=== PATIENT | male | born 1980 | race Caucasian/White ===

== ENCOUNTER 2017-09-06 18:25 | Inpatient (IN) | payer BC ==
[2017-09-06] MEDS ORDERED: ACETAMINOPHEN 325 MG TABLET (FP) PO ONE (18:34)
[2017-09-06] MEDS ORDERED: SODIUM CHLORIDE 1,000 ML IV STA ×2 (19:08→22:27)
--- NOTE | 2017-09-06 19:10 | PDOC ---
Attending Attestation - Physicial Exam PE: 09/06/17 22:36 head ncat neck supple,no jvd,no bruits lungs cta b/l cvs tachycardia abd no rebound, no guarding extremities full range of motion, no cellulitis skin warm, dry neuro axox3,no gross focal neuro deficits no cva tenderness psych appropriate <Rosa M Marmolejo - Last Filed: 09/06/17 22:36> - Resident Resident Name: Jero Valdes - ED Attending Attestation I have performed the following: I have examined & evaluated the patient, The case was reviewed & discussed with the resident, I agree w/resident's findings & plan, Exceptions are as noted - HPI HPI: 09/06/17 18:59 37 yo male with PMH of HTN,NIDDM p/w shaking chills,dysuria,hematuria and fever. He has had symptoms for 2 weeks. He admits being noncompliant with his diabetes meds head ncat neck supple,no jvd,no bruits lungs cta b/l cvs tachycardia abd no rebound, no guarding extremities full range of motion, no cellulitis skin warm, dry neuro axox3,no gross focal neuro deficits no cva tenderness psych appropriate - - Medical Decision Making 09/06/17 23:35 37 yo male meeting SIRS criteria with fever,tachycardia,positive lactic acid, leukocytosis of 19,000 IV antibiotics,IVF and admission med/surg OBS <Colleen Tejada - Last Filed: 09/06/17 23:37>
[2017-09-06] MEDS ORDERED: CEFTRIAXONE 2 GM/100 ML BAG IVPB ONE (19:29)
[2017-09-06 19:32] LABS: BASO % 0.2 % (0-2.0); HEMATOCRIT 44.8 % (35.4-49); LYMPH % 5.4 % (8-40); MCH 25.4 pg (25.7-33.7); MCHC 33.5 g/dl (32.0-35.9); MEAN CELL VOLUME 75.8 fl (80-96); MEAN PLT VOLUME 10.4 fl (7.5-11.1); MONO % 6.4 % (3.8-10.2); PLATELET COUNT 182 K/MM3 (134-434); RBC 5.91 M/mm3 (4.00-5.60); WHITE BLOOD COUNT 19.9 K/mm3 (4.0-10.0)
--- NOTE | 2017-09-06 19:34 | PDOC ---
History of Present Illness - General Chief Complaint: Urinary Problem Stated Complaint: FATIGUE Time Seen by Provider: 09/06/17 18:48 History Source: Patient Exam Limitations: No Limitations - History of Present Illness Initial Comments: 09/06/17 20:59 37M w/ PMH of HTN,NIDDM p/w shaking chills,dysuria,hematuria and fever. He has had symptoms for 2 weeks. He admits being noncompliant with his diabetes meds. Sees his doctor every 6 months with poor follow up, never checks his sugar. 09/06/17 22:15 09/06/17 23:10 Past History - Past Medical History Allergies/Adverse Reactions: Allergies Allergy/AdvReac Type Severity Reaction Status Date / Time No Known Allergies Allergy Verified 09/06/17 18:31 Home Medications: Ambulatory Orders Glyburide 5 mg PO DAILY 09/06/17 Lisinopril [Prinivil] 20 mg PO DAILY 09/06/17 Metformin HCl 750 mg PO DAILY 09/06/17 Asthma: Yes COPD: No Diabetes: Yes HTN: Yes - Immunization History Immunization Up to Date: Yes - Suicide/Smoking/Psychosocial Hx Smoking History: Never smoked Hx Alcohol Use: No Drug/Substance Use Hx: No Review of Systems - Review of Systems Able to Perform ROS?: Yes Is the patient limited Jamaican proficient: No Constitutional: No: Symptoms Reported HEENTM: No: Symptoms Reported Respiratory: No: Symptoms reported Cardiac (ROS): No: Symptoms Reported ABD/GI: No: Symptoms Reported : Yes: See HPI Musculoskeletal: No: Symptoms Reported Integumentary: No: Symptoms Reported Neurological: No: Symptoms reported *Physical Exam - Vital Signs Last Vital Signs Temp Pulse Resp BP Pulse Ox 103.0 F H 135 H 20 145/87 98 09/06/17 18:27 09/06/17 18:27 09/06/17 18:27 09/06/17 18:27 09/06/17 18:27 - Physical Exam General Appearance: Yes: Nourished, Appropriately Dressed. No: Apparent Distress HEENT: positive: EOMI, TURNER, Normal ENT Inspection Respiratory/Chest: positive: Chest Tender, Lungs Clear, Normal Breath Sounds Cardiovascular: positive: Regular Rhythm, Regular Rate, S1, S2 Gastrointestinal/Abdominal: positive: Normal Bowel Sounds, Flat, Soft. negative : Tender Musculoskeletal: positive: Normal Inspection. negative: CVA Tenderness Extremity: positive: Normal Capillary Refill, Normal Inspection ED Treatment Course - LABORATORY CBC & Chemistry Diagram: 09/06/17 19:30 09/06/17 19:20 - ADDITIONAL ORDERS Additional order review: 09/06/17 19:20 RBC 5.91 H MCV 75.8 L MCHC 33.5 RDW 16.0 H MPV 10.4 Neutrophils % 88.0 H Lymphocytes % 5.4 L Monocytes % 6.4 Eosinophils % 0.0 Basophils % 0.2 - RADIOLOGY Radiology Studies Ordered: Category Date Time Status KIDNEY / RENAL US [US] Stat Ultrasound 09/06/17 19:15 Ordered - Medications Given in the ED: ED Medications Discontinued Medications Generic Name Dose Route Start Last Admin Trade Name Freq PRN Reason Stop Dose Admin Acetaminophen 975 mg 09/06/17 18:34 09/06/17 18:35 Tylenol - PO 09/06/17 18:35 975 mg NOW ONE Administration Medical Decision Making - Medical Decision Making 09/06/17 23:10 Basic labs, WBC 19.9, lactate 2.1, UA positive for UTI, urosepsis Patient given fluids, antibiotics. Will Admit to obs for urosepsis. 09/06/17 23:16 *DC/Admit/Observation/Transfer Diagnosis at time of Disposition: Sepsis secondary to UTI - Discharge Dispostion Admit: Yes - Referrals Referrals: Jeyson Pineda [Primary Care Provider] - - Patient Instructions - Post Discharge Activity
[2017-09-06 20:00] LABS: ALBUMIN 3.5 g/dl (3.4-5.0); ALK PHOS 87 U/L (45-117); ANION GAP 10 (8-16); BILIRUBIN,TOTAL 1.2 mg/dL (0.2-1.0); BLOOD UREA NITROGEN 12 mg/dL (7-18); CALCIUM 8.6 mg/dL (8.5-10.1); CHLORIDE 99 mmol/L (98-107); CO2 24 mmol/L (21-32); GLUCOSE,RANDOM 260 mg/dL (74-106); POTASSIUM 3.8 mmol/L (3.5-5.1); SGOT/AST 14 U/L (15-37); SGPT/ALT 35 U/L (12-78); SODIUM 133 mmol/L (136-145); TOT PROT 7.4 g/dl (6.4-8.2)
[2017-09-06 20:22] LABS: URINE APPEARANCE CLEAR; URINE BILIRUBIN NEGATIVE (NEGATIVE); URINE BLOOD 3+ (NEGATIVE); URINE COLOR YELLOW; URINE GLUCOSE (UA) 2+ (NEGATIVE); URINE KETONE TRACE (NEGATIVE); URINE NITRITE NEGATIVE (NEGATIVE); URINE PROTEIN NEGATIVE (NEGATIVE); URINE UROBILINOGEN 4.0 E.U/dl mg/dL (0.2-1.0)
[2017-09-06 20:27] LABS: URINE LEUK ESTERASE 1+ (NEGATIVE)
[2017-09-06 20:28] LABS: EPI CELLS RARE /HPF (FEW); URINE BACTERIA RARE /hpf (NONE SEEN); URINE MUCUS RARE
--- NOTE | 2017-09-06 23:20 | PN ---
Teaching Attending Note Name of Resident: Aggie Mendez ATTENDING PHYSICIAN STATEMENT I saw and evaluated the patient. I reviewed the resident's note and discussed the case with the resident. I agree with the resident's findings and plan as documented. SUBJECTIVE: 37 M with Pmhx of HTN, and NIDDM who presents with chills and rigors. Also notes dysuria and hematouria for 2 week duration. States he had not taken his oral DM meds in a month. States he had a URI around a week ago, which increased usage of his inhaler. Notes chills, states he had subjective fevers at home. No chest pain or pressure. No N,V,D. OBJECTIVE: Physical: VS: Vital Signs Period Temp Pulse Resp BP Sys/Molina Pulse Ox Last 24 Hr 100.5 F-103.0 F 110-135 20-20 141-145/78-87 97-98 GEN: NAD, Resting in bed, AA0X3 HEENT: NCAT, PERRL, Throat without erythema or exudates CARD: RRR S1, S2 RESP: CTAB ABD: BSx4, NTD to palpation EXT: - C/C/E CBCD WBC 19.9 K/mm3 (4.0-10.0) H 09/06/17 19:30 RBC 5.91 M/mm3 (4.00-5.60) H 09/06/17 19:30 Hgb 15.0 GM/dL (11.7-16.9) 09/06/17 19:30 Hct 44.8 % (35.4-49) 09/06/17 19:30 MCV 75.8 fl (80-96) L 09/06/17 19:30 MCHC 33.5 g/dl (32.0-35.9) 09/06/17 19:30 RDW 16.0 % (11.9-15.9) H 09/06/17 19:30 Plt Count 182 K/MM3 (134-434) 09/06/17 19:30 MPV 10.4 fl (7.5-11.1) 09/06/17 19:30 CMP Sodium 133 mmol/L (136-145) L 09/06/17 19:20 Potassium 3.8 mmol/L (3.5-5.1) 09/06/17 19:20 Chloride 99 mmol/L (98-107) 09/06/17 19:20 Carbon Dioxide 24 mmol/L (21-32) 09/06/17 19:20 Anion Gap 10 (8-16) 09/06/17 19:20 BUN 12 mg/dL (7-18) 09/06/17 19:20 Creatinine 1.0 mg/dL (0.7-1.3) 09/06/17 19:20 Creat Clearance w eGFR > 60 (>60) 09/06/17 19:20 Random Glucose 260 mg/dL (74-106) H 09/06/17 19:20 Calcium 8.6 mg/dL (8.5-10.1) 09/06/17 19:20 Total Bilirubin 1.2 mg/dL (0.2-1.0) H 09/06/17 19:20 AST 14 U/L (15-37) L 09/06/17 19:20 ALT 35 U/L (12-78) 09/06/17 19:20 Alkaline Phosphatase 87 U/L (45-117) 09/06/17 19:20 Total Protein 7.4 g/dl (6.4-8.2) 09/06/17 19:20 Albumin 3.5 g/dl (3.4-5.0) 09/06/17 19:20 Urine Test Results Urine Color Yellow 09/06/17 19:30 Urine Appearance Clear 09/06/17 19:30 Urine pH 6.0 (5.0-8.0) 09/06/17 19:30 Ur Specific [place] 1.012 (1.001-1.035) 09/06/17 19:30 Urine Protein Negative (NEGATIVE) 09/06/17 19:30 Urine Glucose (UA) 2+ (NEGATIVE) H 09/06/17 19:30 Urine Ketones Trace (NEGATIVE) H 09/06/17 19:30 Urine Blood 3+ (NEGATIVE) H 09/06/17 19:30 Urine Nitrite Negative (NEGATIVE) 09/06/17 19:30 Urine Bilirubin Negative (NEGATIVE) 09/06/17 19:30 Ur Leukocyte Esterase 1+ (NEGATIVE) H 09/06/17 19:30 Ur Epithelial Cells Rare /HPF (FEW) 09/06/17 19:30 Urine Bacteria Rare /hpf (NONE SEEN) 09/06/17 19:30 Urine Mucus Rare 09/06/17 19:30 Home Medications Medication Instructions Recorded Glyburide 5 mg PO DAILY 09/06/17 Lisinopril [Prinivil] 20 mg PO DAILY 09/06/17 Metformin HCl 750 mg PO DAILY 09/06/17 ASSESSMENT AND PLAN: 37 M with Pmhx. of HTN, NIDDM, who presents with fever and dysuria found to be septic. 1.) Sepsis due to Urinary Tract Infection - Fraser Cx - IVF - Repeat LA - C/W Ceftriaxone - Check. HIV If consents 2.) NIDDM - DM Diet - HgbA1C - FS - RAISS 3.) Dvt Ppx - SCDS Place in Obs
--- NOTE | 2017-09-06 23:37 | HP ---
CHIEF COMPLAINT: Chills, dysuria, hematuria x1 day PCP: Jeyson Grady HISTORY OF PRESENT ILLNESS: Pt is 37 yo M with PMHx of HTN, NIDDM, Asthma, MACKENZIE, presenting with chills, dysuria, hematuria. The pt noted chills, with significant shaking at about bedtime last night, associated with burning sensation on micturition. There was increased frequency and nocturia. Pt had one episode of hematuria- which was initially total, then terminal hematuria. Pt has nausea, but no vomiting. No abdominal pain, no flank pain, no leg swelling. No hx of similar episodes in the past. Pt has a dry cough, no sore throat or difficulty swallowing, no nasal congestion. He however noticed myalgias and a headache today, but no neck stiffness or pain. Pt had a previous episode of chills about a week ago and was diagnosed with an URTI, which resolved without medications. He reports chest tightness and SOB which he attributes to asthma, but no orthopnea, dyspnea on exertion or PND. No facial droop, palpitations or weakness of any part of the body. No recent travels, no sick contacts. Pt received flu vaccine in April. Patient was unable to fill his medications for a month and only resumed use last Thursday. ER course was notable for: (1) Tmax-103, MS-135, Lactic acid 2.1, WBC-19.9% (2) Na-133, Glu -260, UA-WBC-42, LE-1+, RBC-9, Bld -3+ (3) PO tylenol, Iv NS-2L, 2g ceftriaxone (4) Renal USS, CXR Recent Travel: None PAST MEDICAL HISTORY: HTN, NIDDM, Asthma, MACKENZIE (unable to tolerate the CPAP machine) PAST SURGICAL HISTORY: None Social History: Lives with significant other, and kids. Delivers plumbing supplies Smoking: Quit 20 years ago after smoking for about 3years Alcohol:Social Drugs: None Family History: Sister has kidney stones Allergies No Known Allergies Allergy (Verified 09/06/17 18:31) HOME MEDICATIONS: Home Medications Medication Instructions Recorded Glyburide 5 mg PO DAILY 09/06/17 Lisinopril [Prinivil] 20 mg PO DAILY 09/06/17 Metformin HCl 750 mg PO DAILY 09/06/17 REVIEW OF SYSTEMS CONSTITUTIONAL: chills+, malaise+, Absent: fever, diaphoresis, generalized weakness, loss of appetite, weight change HEENT: Absent: rhinorrhea, nasal congestion, throat pain, throat swelling, difficulty swallowing, mouth swelling, ear pain, eye pain, visual changes CARDIOVASCULAR: Absent: chest pain, syncope, palpitations, irregular heart rate, lightheadedness , peripheral edema RESPIRATORY: cough+, Absent: shortness of breath, dyspnea with exertion, orthopnea, wheezing , stridor, hemoptysis GASTROINTESTINAL: Absent: abdominal pain, abdominal distension, nausea, vomiting, diarrhea, constipation, melena, hematochezia GENITOURINARY: dysuria+, frequency+, hematuria+, Absent: urgency, hesitancy, flank pain, genital pain MUSCULOSKELETAL: myalgia+ Absent: arthralgia, joint swelling, back pain, neck pain SKIN: Absent: rash, itching, pallor HEMATOLOGIC/IMMUNOLOGIC: Absent: easy bleeding, easy bruising, lymphadenopathy, frequent infections ENDOCRINE: Absent: unexplained weight gain, unexplained weight loss, heat intolerance, cold intolerance NEUROLOGIC: Absent: headache, focal weakness or paresthesias, dizziness, unsteady gait, seizure, mental status changes, bladder or bowel incontinence PSYCHIATRIC: Absent: anxiety, depression, suicidal or homicidal ideation, hallucinations. PHYSICAL EXAMINATION Vital Signs - 24 hr 09/06/17 09/06/17 09/06/17 18:27 20:17 20:48 Temperature 103.0 F H 100.5 F H Pulse Rate 135 H Pulse Rate [ 110 H Radial] Respiratory 20 20 Rate Blood Pressure 145/87 Blood Pressure 141/78 [Left Arm] O2 Sat by Pulse 98 98 97 Oximetry (%) GENERAL: Awake, alert, and fully oriented, in no acute respiratory distress, speaks in complete sentences. HEAD: Normal with no signs of trauma. EYES: Pupils equal, round and reactive to light, extraocular movements intact, sclera anicteric, conjunctiva clear. EARS, NOSE, THROAT: oropharynx clear without exudates. Moist mucous membranes. NECK: Normal range of motion, supple without lymphadenopathy, JVD, or masses. LUNGS: Breath sounds equal, clear to auscultation bilaterally. No wheezes, and no crackles. No accessory muscle use. HEART: Tachycardic, S1 and S2 without murmur, rub or gallop. ABDOMEN: Obese, Soft, nontender, normoactive bowel sounds, no guarding, no rebound, no masses. No CVA /flank tenderness MUSCULOSKELETAL: Normal range of motion at all joints. No bony deformities or tenderness. No CVA tenderness. UPPER EXTREMITIES: 2+ pulses, warm, well-perfused. No cyanosis. No clubbing. No peripheral edema. LOWER EXTREMITIES: 2+ pulses, warm, well-perfused. No calf tenderness. No peripheral edema. Normal tone, strength 5/5 bilaterally NEUROLOGICAL: Cranial nerves II-XII intact. Normal speech. Gait not observed. Normal tone, strength 5/5 bilaterally PSYCHIATRIC: Cooperative. Good eye contact. Appropriate mood and affect. Laboratory Results - last 24 hr 09/06/17 09/06/17 09/06/17 19:20 19:30 19:30 WBC 19.9 H RBC 5.91 H Hgb 15.0 Hct 44.8 MCV 75.8 L MCH 25.4 L MCHC 33.5 RDW 16.0 H Plt Count 182 MPV 10.4 Neutrophils % 88.0 H Lymphocytes % 5.4 L Monocytes % 6.4 Eosinophils % 0.0 Basophils % 0.2 Sodium 133 L Potassium 3.8 Chloride 99 Carbon Dioxide 24 Anion Gap 10 BUN 12 Creatinine 1.0 Creat Clearance w eGFR > 60 Random Glucose 260 H Lactic Acid Calcium 8.6 Total Bilirubin 1.2 H AST 14 L ALT 35 Alkaline Phosphatase 87 Total Protein 7.4 Albumin 3.5 Urine Color Yellow Urine Appearance Clear Urine pH 6.0 Ur Specific [place] 1.012 Urine Protein Negative Urine Glucose (UA) 2+ H Urine Ketones Trace H Urine Blood 3+ H Urine Nitrite Negative Urine Bilirubin Negative Urine Urobilinogen 4.0 e.u/dl Ur Leukocyte Esterase 1+ H Urine WBC (Auto) 42 Urine RBC (Auto) 9 Ur Epithelial Cells Rare Urine Bacteria Rare Urine Mucus Rare HIV 1&2 Antibody Screen HIV P24 Antigen 09/06/17 09/06/17 19:30 21:25 WBC RBC Hgb Hct MCV MCH MCHC RDW Plt Count MPV Neutrophils % Lymphocytes % Monocytes % Eosinophils % Basophils % Sodium Potassium Chloride Carbon Dioxide Anion Gap BUN Creatinine Creat Clearance w eGFR Random Glucose Lactic Acid 2.1 H Calcium Total Bilirubin AST ALT Alkaline Phosphatase Total Protein Albumin Urine Color Urine Appearance Urine pH Ur Specific [place] Urine Protein Urine Glucose (UA) Urine Ketones Urine Blood Urine Nitrite Urine Bilirubin Urine Urobilinogen Ur Leukocyte Esterase Urine WBC (Auto) Urine RBC (Auto) Ur Epithelial Cells Urine Bacteria Urine Mucus HIV 1&2 Antibody Screen Negative HIV P24 Antigen Negative ASSESSMENT/PLAN: Pt is 37 yo M with PMHx of HTN, NIDDM, Asthma, MACKENZIE, presenting with chills, dysuria, hematuria. Sepsis 2/2 UTI: SIRS-3/4 ( Tmax-103, MS-135, WBC-19.9%) Lactic acid 2.1, trend -1.9 Positive UA Continue iv Ceftriaxone 2g daily (one dose given in ED) Cont iv Normal saline @ 125/hr (2L given in ED) Tylenol 650 PRN Q6H Bld Cx Urine Cx CXR Renal US Urine straining If symptoms do not improve or worsening abd pain will consider CT abdomen w/ o contrast for renal stones Tabs flomax 0.4mg stat iv zofran 4mg Q4h PRN SOB: Associated chest tightness Could be 2/2 to asthma, no wheezes/rhonchi Albuterol nebulizer 0.083% Q4H PRN NIDDM: Hyperglycemic ISS ACHS BGM ACHS iv normal saline Diabetic/sodium restricted diet Hold metformin and glipizide Hgb A1c Hyponatremia: Likely hypertonic hyponatremia with hyperglycemia Corrected sodium-136 Continue DM mx HTN: Resume in am- Lisinopril 20mg HS Monitor BP Hematuria: Likely due to the UTI Could be due to a renal stone Tabs flomax 0.4mg stat FEN: IV NS @125/hr Monitor lytes and replete as needed Diabetic/sodium restricted diet PPx: SCDs Dispo: Obs- Med surg Visit type - Emergency Visit Emergency Visit: Yes ED Registration Date: 09/06/17 Care time: The patient presented to the Emergency Department on the above date and was hospitalized for further evaluation of their emergent condition. - New Patient This patient is new to me today: Yes Date on this admission: 09/07/17 - Critical Care Critical Care patient: No Hospitalist Screening - Colonoscopy Questionnaire Colonoscopy Questionnaire: Colonoscopy Questionnaire - Patient: 50 - 75 years old and never had a screening colonoscopy: No History of colon or rectal polyps, or CA: Unknown History of IBD, Crohn's disease or UC: Unknown History of abdominal radiation therapy as a child: Unknown - Relative: 1 with colon or rectal CA, or polyps at age 60 or younger: Unknown Colon or rectal CA diagnosed at age 45 or younger: Unknown Multiple relatives with colon or rectal CA: Unknown - Outcome: Screening Result: Negative Screen
[2017-09-06] MEDS ORDERED: SODIUM CHLORIDE 1,000 ML IV SCH (23:45)
[2017-09-07 00:36] LABS: ARTERIAL BLD GAS O2 SATURATION 80.9 % (90-98.9); ARTERIAL BLOOD GAS BASE EXCESS 0.1 meq/l (-2-2); ARTERIAL BLOOD GAS PCO2 32.9 mmHg (35-45); ARTERIAL BLOOD GAS pH 7.46 (7.35-7.45)
[2017-09-07 00:38] LABS: ALLENS TEST POSITIVE
[2017-09-07 00:40] LABS: ARTERIAL BLOOD GAS PO2 38.2 mmHg (80-100)
[2017-09-07] MEDS ORDERED: TAMSULOSIN HCL 0.4 MG CAP.ER.24H (FP) PO ONE (00:41)
[2017-09-07] MEDS ORDERED: ONDANSETRON 4 MG/2 ML VIAL IVPUSH PRN ×2 (00:43→16:45)
[2017-09-07] MEDS ORDERED: ACETAMINOPHEN INJECTION 100 ML IVPB ONE (00:52)
[2017-09-07] MEDS: SODIUM CHLORIDE 1,000 ML IV SCH ×3 (01:07→22:21)
[2017-09-07] MEDS ORDERED: ACETAMINOPHEN 1000 MG/100 ML VIAL (NON FORMULARY) IVPB ONE (01:13)
[2017-09-07] MEDS ORDERED: TAMSULOSIN HCL 0.4 MG CAP.ER.24H (FP) ONE (01:22)
[2017-09-07 02:44] VITALS: BMI 37.7
[2017-09-07] MEDS ORDERED: HEPARIN NA (PORCINE) 5,000 UNITS/ML 1ML VIAL SQ SCH (06:00)
[2017-09-07] MEDS: INSULIN SLIDING SCALE (NOVOLOG) 1 VIAL SQ SCH ×5 (06:41→21:23)
[2017-09-07 07:21] LABS: BASO % 0.1 % (0-2.0); EOS % 0.1 % (0-4.5); HEMATOCRIT 42.9 % (35.4-49); HEMOGLOBIN 14.1 GM/dL (11.7-16.9); LYMPH % 10.4 % (8-40); MCH 25.4 pg (25.7-33.7); MCHC 32.9 g/dl (32.0-35.9); MEAN PLT VOLUME 10.8 fl (7.5-11.1); MONO % 6.9 % (3.8-10.2); NEUT % 82.5 % (42.8-82.8); PLATELET COUNT 183 K/MM3 (134-434); RBC 5.58 M/mm3 (4.00-5.60); RDW 16.1 % (11.9-15.9); WHITE BLOOD COUNT 20.3 K/mm3 (4.0-10.0)
[2017-09-07 07:53] LABS: CHLORIDE 103 mmol/L (98-107); POTASSIUM 4.1 mmol/L (3.5-5.1); SODIUM 138 mmol/L (136-145)
[2017-09-07 08:04] LABS: ALK PHOS 85 U/L (45-117); ANION GAP 12 (8-16); BILIRUBIN,TOTAL 1.3 mg/dL (0.2-1.0); BLOOD UREA NITROGEN 11 mg/dL (7-18); CALCIUM 8.6 mg/dL (8.5-10.1); CO2 23 mmol/L (21-32); CREATININE 0.9 mg/dL (0.7-1.3); GLUCOSE,RANDOM 226 mg/dL (74-106); MAGNESIUM 1.8 mg/dL (1.8-2.4); PHOSPHOROUS 2.6 mg/dL (2.5-4.9); SGOT/AST 12 U/L (15-37); SGPT/ALT 32 U/L (12-78)
[2017-09-07] MEDS: LISINOPRIL 20 MG TABLET (FP) PO SCH (09:19)
[2017-09-07 09:36] LABS: BILIRUBIN,DIRECT 0.3 mg/dL (0.0-0.2)
[2017-09-07] MEDS ORDERED: cefTRIAXone 2 GM/100 ML BAG (PRE-DOCKED) IVPB SCH (10:00)
[2017-09-07] MEDS ORDERED: CEFTRIAXONE 1 G/50 ML PREMIX 50 ML IVPB SCH (10:00)
[2017-09-07] MEDS ORDERED: CEFTRIAXONE IN IS-OSM DEXTROSE 2 GM/50 ML BAG IVPB SCH (10:00)
--- NOTE | 2017-09-07 10:42 | EKG ---
Test Reason : Blood Pressure : / mmHG Vent. Rate : 111 BPM Atrial Rate : 111 BPM P-R Int : 160 ms QRS Dur : 102 ms QT Int : 322 ms P-R-T Axes : 069 078 051 degrees QTc Int : 437 ms SINUS TACHYCARDIA OTHERWISE NORMAL ECG NO PREVIOUS ECGS AVAILABLE Confirmed by LISSY FONSECA MD ([id number]) on 09/07/2017 10:42:12 AM Referred By: Confirmed By:LISSY FONSECA MD
[2017-09-07] MEDS ORDERED: INSULIN (NOVOLOG) ASPART 100 UNITS/ML 10ML VIAL ONE ×2 (11:32→16:44)
[2017-09-07] MEDS: AZITHROMYCIN 250 MG TABLET PO SCH (11:35)
[2017-09-07 13:20] LABS: URINE APPEARANCE CLEAR; URINE BILIRUBIN NEGATIVE (NEGATIVE); URINE BLOOD NEGATIVE (NEGATIVE); URINE COLOR YELLOW; URINE GLUCOSE (UA) 3+ (NEGATIVE); URINE KETONE TRACE (NEGATIVE); URINE LEUK ESTERASE NEGATIVE (NEGATIVE); URINE NITRITE NEGATIVE (NEGATIVE); URINE PROTEIN NEGATIVE (NEGATIVE); URINE UROBILINOGEN 4.0 E.U/dl mg/dL (0.2-1.0)
--- NOTE | 2017-09-07 15:48 | PN ---
Teaching Attending Note Name of Resident: Robinson Galo ATTENDING PHYSICIAN STATEMENT I saw and evaluated the patient. I reviewed the resident's note and discussed the case with the resident. I agree with the resident's findings and plan as documented. SUBJECTIVE: Patient is 37 yo M with PMHx of HTN, NIDDM, Asthma, MACKEN[place], presented to ED. with chills, dysuria, hematuria. Also c/o having cough and his sinuses are acting up. Also c/o having burning sensation on micturition. Patient is c/o having a dry cough, no sore throat or difficulty swallowing, no nasal congestion. OBJECTIVE: Vital Signs Temperature 100.0 F H 09/07/17 14:44 Pulse Rate 106 H 09/07/17 14:44 Respiratory Rate 20 09/07/17 14:44 Blood Pressure 139/80 09/07/17 14:44 O2 Sat by Pulse Oximetry (%) 97 09/07/17 09:42 CBCD WBC 20.3 K/mm3 (4.0-10.0) H 09/07/17 07:00 RBC 5.58 M/mm3 (4.00-5.60) 09/07/17 07:00 Hgb 14.1 GM/dL (11.7-16.9) 09/07/17 07:00 Hct 42.9 % (35.4-49) 09/07/17 07:00 MCV 77.0 fl (80-96) L 09/07/17 07:00 MCHC 32.9 g/dl (32.0-35.9) 09/07/17 07:00 RDW 16.1 % (11.9-15.9) H 09/07/17 07:00 Plt Count 183 K/MM3 (134-434) 09/07/17 07:00 MPV 10.8 fl (7.5-11.1) 09/07/17 07:00 CMP Sodium 138 mmol/L (136-145) 09/07/17 07:00 Potassium 4.1 mmol/L (3.5-5.1) 09/07/17 07:00 Chloride 103 mmol/L (98-107) 09/07/17 07:00 Carbon Dioxide 23 mmol/L (21-32) 09/07/17 07:00 Anion Gap 12 (8-16) 09/07/17 07:00 BUN 11 mg/dL (7-18) 09/07/17 07:00 Creatinine 0.9 mg/dL (0.7-1.3) 09/07/17 07:00 Creat Clearance w eGFR > 60 (>60) 09/07/17 07:00 Random Glucose 226 mg/dL (74-106) H 09/07/17 07:00 Calcium 8.6 mg/dL (8.5-10.1) 09/07/17 07:00 Total Bilirubin 1.3 mg/dL (0.2-1.0) H 09/07/17 07:00 AST 12 U/L (15-37) L 09/07/17 07:00 ALT 32 U/L (12-78) 09/07/17 07:00 Alkaline Phosphatase 85 U/L (45-117) 09/07/17 07:00 Total Protein 7.0 g/dl (6.4-8.2) 09/07/17 07:00 Albumin 3.0 g/dl (3.4-5.0) L 09/07/17 07:00 CARDIAC ENZYMES Creatine Kinase 143 IU/L (39-308) 09/07/17 07:00 Current Medications Generic Name Dose Route Start Last Admin Trade Name Freq PRN Reason Stop Dose Admin Acetaminophen 650 mg 09/07/17 01:29 Tylenol - PO Q6H PRN FEVER Albuterol Sulfate 1 amp 09/07/17 00:42 Ventolin 0.083% Nebulizer Soln - NEB Q4H PRN SHORT OF BREATH/WHEEZING Azithromycin 500 mg 09/07/17 11:15 09/07/17 11:35 Zithromax - PO 500 mg DAILY SIDNEY Administration CEFTRIAXONE IN IS-OSM DEXTROSE 2 gm in 50 mls @ 100 mls/hr 09/07/17 10:00 11/20 09:19 Ceftriaxone 2 Gm-D5w Bag IVPB 09/13/17 10:29 100 mls/hr DAILY SIDNEY Administration Sodium Chloride 1,000 mls @ 125 mls/hr 09/07/17 00:46 09/07/17 12:38 Normal Saline - IV 125 mls/hr ASDIR SIDNEY Administration Insulin Aspart 1 vial 09/07/17 07:00 09/07/17 11:35 Novolog Vial Sliding Scale - SQ 4 units ACHS SIDNEY Administration Protocol Insulin Detemir 10 units 09/07/17 22:00 Levemir Vial SQ HS SIDNEY Lisinopril 20 mg 09/07/17 10:00 09/07/17 09:19 Prinivil PO 20 mg DAILY SIDNEY Administration Ondansetron HCl 4 mg 09/07/17 00:43 Zofran Injection IVPUSH Q4H PRN NAUSEA AND/OR VOMITING Home Medications Medication Instructions Recorded Glyburide 5 mg PO DAILY 09/06/17 Lisinopril [Prinivil] 20 mg PO DAILY 09/06/17 Metformin HCl 750 mg PO DAILY 09/06/17 PE: GENERAL: Awake, alert, and fully oriented, in no acute respiratory distress, speaks in complete sentences. HEAD: Normal with no signs of trauma. EYES: Pupils equal, round and reactive to light, extraocular movements intact, sclera anicteric, conjunctiva clear. EARS, NOSE, THROAT: oropharynx clear without exudates. Moist mucous membranes. NECK: Normal range of motion, supple without lymphadenopathy, JVD, or masses. LUNGS: Breath sounds equal, clear to auscultation bilaterally. No wheezes, and no crackles. No accessory muscle use. HEART: Tachycardic, S1 and S2 without murmur, rub or gallop. ABDOMEN: Obese, Soft, nontender, normoactive bowel sounds, no guarding, no rebound, no masses. No CVA /flank tenderness MUSCULOSKELETAL: Normal range of motion at all joints. No bony deformities or tenderness. No CVA tenderness. EXTREMITIES: 2+ pulses, warm, well-perfused. No calf tenderness. No peripheral edema. Normal tone, strength 5/5 bilaterally NEUROLOGICAL: Cranial nerves II-XII intact. Normal speech. Gait not observed. Normal tone, strength 5/5 bilaterally PSYCHIATRIC: Cooperative. Good eye contact. Appropriate mood and affect. ASSESSMENT AND PLAN: Pt is 37 yo M with PMHx of HTN, NIDDM, Asthma, MACKENZIE, presenting with chills, dysuria, hematuria. # Acute sepsis with ( Tmax-103, NE-135, WBC-20%) on IV Rocephin and Zithromax for possible sinus infection since patient is prone to sinusitis and feels congested. ID consulted. # NIDDM:SS with coverage also added Levemir 10 units qhs #s/p Hyponatremia: improved #HTN: Lisinopril 20mg HS #Hematuria: due to the kidney stone , will repeat UA. DVT Px: SCDs
--- NOTE | 2017-09-07 16:08 | PN ---
Physical Exam: SUBJECTIVE: Patient seen and examined at bed side . complain of fever and chills over night . presented with dysuria and hematuria . denies any abdominal pain , N/V/D/C. has recent URI and complains of nasal congestion. OBJECTIVE: Vital Signs Period Temp Pulse Resp BP Sys/Molina Pulse Ox Last 24 Hr 99.9 F-103.0 F 101-135 16-20 134-145/76-87 95-100 GENERAL: AAOx3 in NAD HEAD: NC/AT EYES: EOMI, Conjunctiva clear, sclera anicteric ENT: moist mucous membrane NECK: Supple, no JVD LUNGS: CTA B/L, no crackles no wheezing no accessory muscle use. HEART: RRR, NSR, normal s1, s2, murmur no M/R/G ABDOMEN: Soft, ND, NT, +BS 4 Q, no CVA Tenderness LOWER EXTREMITIES: no edema, +2DP pulse, NEUROLOGICAL: No focal deficit. Normal speech. gait not observed. PSYCHIATRIC: Cooperative. Good eye contact. Appropriate mood and affect. SKIN: Warm, dry, Laboratory Results - last 24 hr 09/06/17 09/06/17 09/06/17 19:20 19:30 19:30 WBC 19.9 H RBC 5.91 H Hgb 15.0 Hct 44.8 MCV 75.8 L MCH 25.4 L MCHC 33.5 RDW 16.0 H Plt Count 182 MPV 10.4 Neutrophils % 88.0 H Lymphocytes % 5.4 L Monocytes % 6.4 Eosinophils % 0.0 Basophils % 0.2 ESR Puncture Site ABG pH ABG pCO2 at Pt Temp ABG pO2 at Pt Temp ABG HCO3 ABG O2 Sat (Measured) ABG O2 Content ABG Base Excess Sudhakar Test Oxygen Flow Rate Vent Mode Sodium 133 L Potassium 3.8 Chloride 99 Carbon Dioxide 24 Anion Gap 10 BUN 12 Creatinine 1.0 Creat Clearance w eGFR > 60 POC Glucometer Random Glucose 260 H Hemoglobin A1c % Lactic Acid Calcium 8.6 Phosphorus Magnesium Total Bilirubin 1.2 H Direct Bilirubin AST 14 L ALT 35 Alkaline Phosphatase 87 Creatine Kinase C-Reactive Protein Total Protein 7.4 Albumin 3.5 Vitamin B12 Urine Color Yellow Urine Appearance Clear Urine pH 6.0 Ur Specific [place] 1.012 Urine Protein Negative Urine Glucose (UA) 2+ H Urine Ketones Trace H Urine Blood 3+ H Urine Nitrite Negative Urine Bilirubin Negative Urine Urobilinogen 4.0 e.u/dl Ur Leukocyte Esterase 1+ H Urine WBC (Auto) 42 Urine RBC (Auto) 9 Ur Epithelial Cells Rare Urine Bacteria Rare Urine Mucus Rare Ur Random Sodium Ur Random Potassium Ur Random Chloride Urine Creatinine HIV 1&2 Antibody Screen HIV P24 Antigen 09/06/17 09/06/17 09/07/17 19:30 21:25 00:30 WBC RBC Hgb Hct MCV MCH MCHC RDW Plt Count MPV Neutrophils % Lymphocytes % Monocytes % Eosinophils % Basophils % ESR Puncture Site Left radial ABG pH 7.46 H ABG pCO2 at Pt Temp 32.9 L ABG pO2 at Pt Temp 38.2 L* ABG HCO3 22.8 ABG O2 Sat (Measured) 80.9 L ABG O2 Content 16.5 ABG Base Excess 0.1 Sudhakar Test Positive Oxygen Flow Rate No Result Required. Vent Mode Room air Sodium Potassium Chloride Carbon Dioxide Anion Gap BUN Creatinine Creat Clearance w eGFR POC Glucometer Random Glucose Hemoglobin A1c % Lactic Acid 2.1 H Calcium Phosphorus Magnesium Total Bilirubin Direct Bilirubin AST ALT Alkaline Phosphatase Creatine Kinase C-Reactive Protein Total Protein Albumin Vitamin B12 Urine Color Urine Appearance Urine pH Ur Specific [place] Urine Protein Urine Glucose (UA) Urine Ketones Urine Blood Urine Nitrite Urine Bilirubin Urine Urobilinogen Ur Leukocyte Esterase Urine WBC (Auto) Urine RBC (Auto) Ur Epithelial Cells Urine Bacteria Urine Mucus Ur Random Sodium Ur Random Potassium Ur Random Chloride Urine Creatinine HIV 1&2 Antibody Screen Negative HIV P24 Antigen Negative 09/07/17 09/07/17 09/07/17 02:00 06:39 07:00 WBC 20.3 H RBC 5.58 Hgb 14.1 Hct 42.9 MCV 77.0 L MCH 25.4 L MCHC 32.9 RDW 16.1 H Plt Count 183 MPV 10.8 Neutrophils % 82.5 Lymphocytes % 10.4 D Monocytes % 6.9 Eosinophils % 0.1 D Basophils % 0.1 ESR Puncture Site ABG pH ABG pCO2 at Pt Temp ABG pO2 at Pt Temp ABG HCO3 ABG O2 Sat (Measured) ABG O2 Content ABG Base Excess Sudhakar Test Oxygen Flow Rate Vent Mode Sodium Potassium Chloride Carbon Dioxide Anion Gap BUN Creatinine Creat Clearance w eGFR POC Glucometer 234 Random Glucose Hemoglobin A1c % Lactic Acid 1.9 Calcium Phosphorus Magnesium Total Bilirubin Direct Bilirubin AST ALT Alkaline Phosphatase Creatine Kinase C-Reactive Protein Total Protein Albumin Vitamin B12 Urine Color Urine Appearance Urine pH Ur Specific [place] Urine Protein Urine Glucose (UA) Urine Ketones Urine Blood Urine Nitrite Urine Bilirubin Urine Urobilinogen Ur Leukocyte Esterase Urine WBC (Auto) Urine RBC (Auto) Ur Epithelial Cells Urine Bacteria Urine Mucus Ur Random Sodium Ur Random Potassium Ur Random Chloride Urine Creatinine HIV 1&2 Antibody Screen HIV P24 Antigen 09/07/17 09/07/17 09/07/17 07:00 07:00 07:00 WBC RBC Hgb Hct MCV MCH MCHC RDW Plt Count MPV Neutrophils % Lymphocytes % Monocytes % Eosinophils % Basophils % ESR Puncture Site ABG pH ABG pCO2 at Pt Temp ABG pO2 at Pt Temp ABG HCO3 ABG O2 Sat (Measured) ABG O2 Content ABG Base Excess Sudhakar Test Oxygen Flow Rate Vent Mode Sodium 138 Potassium 4.1 Chloride 103 Carbon Dioxide 23 Anion Gap 12 BUN 11 Creatinine 0.9 Creat Clearance w eGFR > 60 POC Glucometer Random Glucose 226 H Hemoglobin A1c % 8.3 H Lactic Acid Calcium 8.6 Phosphorus 2.6 Magnesium 1.8 Total Bilirubin 1.3 H Direct Bilirubin 0.3 H Cancelled AST 12 L ALT 32 Alkaline Phosphatase 85 Creatine Kinase 143 C-Reactive Protein 16.0 H Total Protein 7.0 Albumin 3.0 L Vitamin B12 376 Urine Color Urine Appearance Urine pH Ur Specific [place] Urine Protein Urine Glucose (UA) Urine Ketones Urine Blood Urine Nitrite Urine Bilirubin Urine Urobilinogen Ur Leukocyte Esterase Urine WBC (Auto) Urine RBC (Auto) Ur Epithelial Cells Urine Bacteria Urine Mucus Ur Random Sodium Ur Random Potassium Ur Random Chloride Urine Creatinine HIV 1&2 Antibody Screen HIV P24 Antigen 09/07/17 09/07/17 09/07/17 11:07 12:00 12:00 WBC RBC Hgb Hct MCV MCH MCHC RDW Plt Count MPV Neutrophils % Lymphocytes % Monocytes % Eosinophils % Basophils % ESR Puncture Site ABG pH ABG pCO2 at Pt Temp ABG pO2 at Pt Temp ABG HCO3 ABG O2 Sat (Measured) ABG O2 Content ABG Base Excess Sudhakar Test Oxygen Flow Rate Vent Mode Sodium Potassium Chloride Carbon Dioxide Anion Gap BUN Creatinine Creat Clearance w eGFR POC Glucometer 241 Random Glucose Hemoglobin A1c % Lactic Acid Calcium Phosphorus Magnesium Total Bilirubin Direct Bilirubin AST ALT Alkaline Phosphatase Creatine Kinase C-Reactive Protein Total Protein Albumin Vitamin B12 Urine Color Urine Appearance Urine pH Ur Specific [place] Urine Protein Urine Glucose (UA) Urine Ketones Urine Blood Urine Nitrite Urine Bilirubin Urine Urobilinogen Ur Leukocyte Esterase Urine WBC (Auto) Urine RBC (Auto) Ur Epithelial Cells Urine Bacteria Urine Mucus Ur Random Sodium Cancelled 139 Ur Random Potassium Cancelled 18.0 Ur Random Chloride Cancelled 119 Urine Creatinine 109.0 HIV 1&2 Antibody Screen HIV P24 Antigen 09/07/17 09/07/17 12:00 12:40 WBC RBC Hgb Hct MCV MCH MCHC RDW Plt Count MPV Neutrophils % Lymphocytes % Monocytes % Eosinophils % Basophils % ESR 29 H Puncture Site ABG pH ABG pCO2 at Pt Temp ABG pO2 at Pt Temp ABG HCO3 ABG O2 Sat (Measured) ABG O2 Content ABG Base Excess Sudhakar Test Oxygen Flow Rate Vent Mode Sodium Potassium Chloride Carbon Dioxide Anion Gap BUN Creatinine Creat Clearance w eGFR POC Glucometer Random Glucose Hemoglobin A1c % Lactic Acid Calcium Phosphorus Magnesium Total Bilirubin Direct Bilirubin AST ALT Alkaline Phosphatase Creatine Kinase C-Reactive Protein Total Protein Albumin Vitamin B12 Urine Color Yellow Urine Appearance Clear Urine pH 7.0 Ur Specific [place] 1.018 Urine Protein Negative Urine Glucose (UA) 3+ H Urine Ketones Trace H Urine Blood Negative Urine Nitrite Negative Urine Bilirubin Negative Urine Urobilinogen 4.0 e.u/dl Ur Leukocyte Esterase Negative Urine WBC (Auto) Urine RBC (Auto) Ur Epithelial Cells Urine Bacteria Urine Mucus Ur Random Sodium Ur Random Potassium Ur Random Chloride Urine Creatinine HIV 1&2 Antibody Screen HIV P24 Antigen Active Medications Generic Name Dose Route Start Last Admin Trade Name Freq PRN Reason Stop Dose Admin Acetaminophen 650 mg 09/07/17 01:29 Tylenol - PO Q6H PRN FEVER Albuterol Sulfate 1 amp 09/07/17 00:42 Ventolin 0.083% Nebulizer Soln - NEB Q4H PRN SHORT OF BREATH/WHEEZING Azithromycin 500 mg 09/07/17 11:15 09/07/17 11:35 Zithromax - PO 500 mg DAILY SIDNEY Administration CEFTRIAXONE IN IS-OSM DEXTROSE 2 gm in 50 mls @ 100 mls/hr 09/07/17 10:00 11/20 09:19 Ceftriaxone 2 Gm-D5w Bag IVPB 09/13/17 10:29 100 mls/hr DAILY SIDNEY Administration Sodium Chloride 1,000 mls @ 125 mls/hr 09/07/17 00:46 09/07/17 12:38 Normal Saline - IV 125 mls/hr ASDIR SIDNEY Administration Insulin Aspart 1 vial 09/07/17 07:00 09/07/17 11:35 Novolog Vial Sliding Scale - SQ 4 units ACHS SIDNEY Administration Protocol Insulin Detemir 10 units 09/07/17 22:00 Levemir Vial SQ HS SIDNEY Lisinopril 20 mg 09/07/17 10:00 09/07/17 09:19 Prinivil PO 20 mg DAILY ISDNEY Administration Ondansetron HCl 4 mg 09/07/17 00:43 Zofran Injection IVPUSH Q4H PRN NAUSEA AND/OR VOMITING CBC, BMP 09/07/17 07:00 09/07/17 07:00 ASSESSMENT/PLAN: Pt is 37 yo M with PMHx of HTN, NIDDM, Asthma, MACKENZIE, recent URI presented with fever, chills, dysuria, hematuria. Sepsis 2/2 UTI vs another sources * fever 103, HR 135, wbc 20, LA 2.1 ...1.9 * US positive for infection * Continue Rocephin 2 gm IVBP daily * ID consulted agree with the plan * F/U Blood cx , urine cx * CXR negative for acute pathology * Renal US with kidney stone * consider CT scan abdomen if no improvement with abx * continue IV fluids and urine straining. * one dose of Flomx 0.4 mg po over night Hematuria likely 2/2 nephrolithiasis * pt reports dysuria and hematuria day of admission associated with fever, chills, nausea * Started on abx Rocephin 2 gm IVbP daily * Zofran for nausea * EKG to R/O QTC prolongation * IV Fluids 125 CC/hr NS * pain control Tylenol 650 Q6hr for pain. H/O recent URI with residual nasal congestion . H/O asthma * Albuterol nebs as needed * nasal swap * throat cx * zithromax 3 days * claritin as needed HTN , controlled * resume home meds Lisinopril 20 mg po daily DM * Hold oral agents * GBM ACHS * ISS * insulin Levemir 10 units Q AM * HGBA1c 8.6 * Diabetic diet * educated about losing weight and life style modification Hyponatremia , resolved likely 2/2 volume depletion * NS 133 ....138 * Monitor BMP * Continue IV fluids Morbid obesity, chronic * BMI 37 * educated about life style modification follow up with upon DC. FEN * F: NS 125 CC/hr * E: Mild hyponatremia , monitor BMP * N: low Na , diabetic diet Proph * DVTS: SCDS both legs * GI: no need for now Dispo * admit to med-surg inpatient services Visit type - Emergency Visit Emergency Visit: Yes ED Registration Date: 09/07/17 Care time: The patient presented to the Emergency Department on the above date and was hospitalized for further evaluation of their emergent condition. - New Patient This patient is new to me today: Yes Date on this admission: 09/07/17 - Critical Care Critical Care patient: No
[2017-09-07] MEDS: ACETAMINOPHEN 325 MG TABLET (FP) PO PRN (21:24)
[2017-09-07] MEDS ORDERED: INSULIN DETEMIR 100 UNITS/ML MDV SQ SCH (22:00)
[2017-09-08] MEDS: SODIUM CHLORIDE 1,000 ML IV SCH ×2 (06:06→15:58)
[2017-09-08] MEDS: ACETAMINOPHEN 325 MG TABLET (FP) PO PRN ×2 (06:07→12:44)
[2017-09-08] MEDS: INSULIN SLIDING SCALE (NOVOLOG) 1 VIAL SQ SCH ×4 (06:07→22:32)
[2017-09-08] MEDS ORDERED: PSEUDOEPHEDRINE HCL 30 MG TABLET PO SCH (08:00)
[2017-09-08 08:46] LABS: BASO % 0.1 % (0-2.0); EOS % 0.3 % (0-4.5); HEMATOCRIT 41.2 % (35.4-49); HEMOGLOBIN 13.9 GM/dL (11.7-16.9); LYMPH % 6.4 % (8-40); MCHC 33.7 g/dl (32.0-35.9); MEAN CELL VOLUME 77.1 fl (80-96); MEAN PLT VOLUME 10.3 fl (7.5-11.1); MONO % 6.2 % (3.8-10.2); PLATELET COUNT 168 K/MM3 (134-434); RBC 5.34 M/mm3 (4.00-5.60); RDW 15.6 % (11.9-15.9); WHITE BLOOD COUNT 10.9 K/mm3 (4.0-10.0)
[2017-09-08 09:11] LABS: ALBUMIN 3.1 g/dl (3.4-5.0); ANION GAP 11 (8-16); BLOOD UREA NITROGEN 10 mg/dL (7-18); CALCIUM 8.7 mg/dL (8.5-10.1); CHLORIDE 102 mmol/L (98-107); CO2 21 mmol/L (21-32); GLUCOSE,RANDOM 214 mg/dL (74-106); SGOT/AST 31 U/L (15-37); SGPT/ALT 46 U/L (12-78); SODIUM 134 mmol/L (136-145)
[2017-09-08 09:14] LABS: ALK PHOS 94 U/L (45-117); CREATININE 0.7 mg/dL (0.7-1.3); TOT PROT 7.5 g/dl (6.4-8.2)
[2017-09-08] MEDS ORDERED: PSEUDOEPHEDRINE HCL 30 MG TABLET PO PRN (09:49)
--- NOTE | 2017-09-08 09:58 | PN ---
Physical Exam: SUBJECTIVE: Patient seen and examined at bedside. continued to have fever 101.1 this AM, still complain of nasal congestion, but denies any urinary symptoms or hematuria. denies any chest pain , sob,N/V/D/C. OBJECTIVE: Vital Signs Period Temp Pulse Resp BP Sys/Molina Pulse Ox Last 24 Hr 100.0 F-101.1 F 95-113 16-20 128-152/80-94 97 GENERAL: AAOx3 in NAD , febrile HEAD: NC/AT EYES: EOMI, Conjunctiva clear, sclera anicteric ENT: moist mucous membrane NECK: Supple, no JVD LUNGS: CTA B/L, no crackles no wheezing no accessory muscle use. HEART: RRR, NSR, normal s1, s2, murmur no M/R/G ABDOMEN: Soft, ND, NT, +BS 4 Q, no CVA Tenderness LOWER EXTREMITIES: no edema, +2DP pulse, NEUROLOGICAL: No focal deficit. Normal speech. gait not observed. PSYCHIATRIC: Cooperative. Good eye contact. Appropriate mood and affect. SKIN: Warm, dry, Laboratory Results - last 24 hr 09/07/17 09/07/17 09/07/17 07:00 11:07 12:00 WBC RBC Hgb Hct MCV MCH MCHC RDW Plt Count MPV Neutrophils % Lymphocytes % Monocytes % Eosinophils % Basophils % ESR Sodium 138 Potassium 4.1 Chloride 103 Carbon Dioxide 23 Anion Gap 12 BUN 11 Creatinine 0.9 Creat Clearance w eGFR > 60 POC Glucometer 241 Random Glucose 226 H Calcium 8.6 Phosphorus 2.6 Magnesium 1.8 Total Bilirubin 1.3 H Direct Bilirubin 0.3 H AST 12 L ALT 32 Alkaline Phosphatase 85 Creatine Kinase 143 C-Reactive Protein 16.0 H Total Protein 7.0 Albumin 3.0 L Vitamin B12 376 Urine Color Urine Appearance Urine pH Ur Specific [place] Urine Protein Urine Glucose (UA) Urine Ketones Urine Blood Urine Nitrite Urine Bilirubin Urine Urobilinogen Ur Leukocyte Esterase Ur Random Sodium Cancelled Ur Random Potassium Cancelled Ur Random Chloride Cancelled Urine Creatinine 09/07/17 09/07/17 09/07/17 12:00 12:00 12:40 WBC RBC Hgb Hct MCV MCH MCHC RDW Plt Count MPV Neutrophils % Lymphocytes % Monocytes % Eosinophils % Basophils % ESR 29 H Sodium Potassium Chloride Carbon Dioxide Anion Gap BUN Creatinine Creat Clearance w eGFR POC Glucometer Random Glucose Calcium Phosphorus Magnesium Total Bilirubin Direct Bilirubin AST ALT Alkaline Phosphatase Creatine Kinase C-Reactive Protein Total Protein Albumin Vitamin B12 Urine Color Yellow Urine Appearance Clear Urine pH 7.0 Ur Specific [place] 1.018 Urine Protein Negative Urine Glucose (UA) 3+ H Urine Ketones Trace H Urine Blood Negative Urine Nitrite Negative Urine Bilirubin Negative Urine Urobilinogen 4.0 e.u/dl Ur Leukocyte Esterase Negative Ur Random Sodium 139 Ur Random Potassium 18.0 Ur Random Chloride 119 Urine Creatinine 109.0 09/07/17 09/07/17 09/08/17 16:43 21:22 06:05 WBC RBC Hgb Hct MCV MCH MCHC RDW Plt Count MPV Neutrophils % Lymphocytes % Monocytes % Eosinophils % Basophils % ESR Sodium Potassium Chloride Carbon Dioxide Anion Gap BUN Creatinine Creat Clearance w eGFR POC Glucometer 262 212 224 Random Glucose Calcium Phosphorus Magnesium Total Bilirubin Direct Bilirubin AST ALT Alkaline Phosphatase Creatine Kinase C-Reactive Protein Total Protein Albumin Vitamin B12 Urine Color Urine Appearance Urine pH Ur Specific [place] Urine Protein Urine Glucose (UA) Urine Ketones Urine Blood Urine Nitrite Urine Bilirubin Urine Urobilinogen Ur Leukocyte Esterase Ur Random Sodium Ur Random Potassium Ur Random Chloride Urine Creatinine 09/08/17 09/08/17 08:05 08:05 WBC 10.9 H D RBC 5.34 Hgb 13.9 Hct 41.2 MCV 77.1 L MCH 26.0 MCHC 33.7 RDW 15.6 Plt Count 168 MPV 10.3 Neutrophils % 87.0 H Lymphocytes % 6.4 L D Monocytes % 6.2 Eosinophils % 0.3 D Basophils % 0.1 ESR Sodium 134 L Potassium 4.0 Chloride 102 Carbon Dioxide 21 Anion Gap 11 BUN 10 Creatinine 0.7 D Creat Clearance w eGFR > 60 POC Glucometer Random Glucose 214 H Calcium 8.7 Phosphorus Magnesium Total Bilirubin 1.0 D Direct Bilirubin AST 31 D ALT 46 D Alkaline Phosphatase 94 Creatine Kinase C-Reactive Protein Total Protein 7.5 Albumin 3.1 L Vitamin B12 Urine Color Urine Appearance Urine pH Ur Specific [place] Urine Protein Urine Glucose (UA) Urine Ketones Urine Blood Urine Nitrite Urine Bilirubin Urine Urobilinogen Ur Leukocyte Esterase Ur Random Sodium Ur Random Potassium Ur Random Chloride Urine Creatinine Active Medications Generic Name Dose Route Start Last Admin Trade Name Freq PRN Reason Stop Dose Admin Acetaminophen 650 mg 09/07/17 01:29 09/08/17 06:07 Tylenol - PO 650 mg Q6H PRN Administration FEVER Albuterol Sulfate 1 amp 09/07/17 00:42 Ventolin 0.083% Nebulizer Soln - NEB Q4H PRN SHORT OF BREATH/WHEEZING Azithromycin 500 mg 09/07/17 11:15 09/07/17 11:35 Zithromax - PO 500 mg DAILY SIDNEY Administration Sodium Chloride 1,000 mls @ 125 mls/hr 09/07/17 00:46 09/08/17 06:06 Normal Saline - IV 125 mls/hr ASDIR SIDNEY Administration Cefepime HCl 2 gm/ Dextrose 100 mls @ 200 mls/hr 09/08/17 10:00 IVPB Q8H-IV SIDNEY Protocol Insulin Aspart 1 vial 09/07/17 07:00 09/08/17 06:07 Novolog Vial Sliding Scale - SQ 4 units ACHS SIDNEY Administration Protocol Insulin Detemir 15 units 09/08/17 08:03 Levemir Vial SQ HS SIDNEY Lisinopril 20 mg 09/07/17 10:00 09/07/17 09:19 Prinivil PO 20 mg DAILY SIDNEY Administration Loratadine 10 mg 09/08/17 10:00 Claritin - PO DAILY SIDNEY Ondansetron HCl 4 mg 09/07/17 16:45 Zofran Injection IVPUSH Q6H PRN NAUSEA AND/OR VOMITING Oseltamivir Phosphate 75 mg 09/08/17 10:00 Tamiflu - PO 09/13/17 09:59 BID SIDNEY Pseudoephedrine HCl 30 mg 09/08/17 09:49 Sudafed - PO Q4H PRN NASAL CONGESTION CBC, BMP 09/08/17 08:05 09/08/17 08:05 Microbiology 09/07/17 12:00 Throat Throat Culture - Final NO BETA HEMOLYTIC STREPTOCOCCI ISOLATED 09/07/17 12:00 Throat Throat Culture - Final NO BETA HEMOLYTIC STREPTOCOCCI ISOLATED 09/07/17 12:00 Throat Group A Strep Rapid Antigen - Final 09/06/17 19:30 Urine - Urine Clean Catch Urine Culture - Preliminary Lactose Fermenting Neg Bacilli 09/07/17 02:00 Blood - Peripheral Venous Blood Culture - Preliminary NO GROWTH OBTAINED AFTER 24 HOURS, INCUBATION TO CONTINUE FOR 4 DAYS. 09/07/17 02:00 Blood - Peripheral Venous Blood Culture - Preliminary NO GROWTH OBTAINED AFTER 24 HOURS, INCUBATION TO CONTINUE FOR 4 DAYS. ASSESSMENT/PLAN: Pt is 37 yo M with PMHx of HTN, NIDDM, Asthma, MACKENZIE, recent URI presented with fever, chills, dysuria, hematuria. Sepsis 2/2 UTI vs URI vs another sources * continue to have fever 101.1 , wbc trending down to 10.9. CRP 16, ESR 29 * UA positive for infection * Continue Rocephin 2 gm IVBP daily, switch to cefepim per ID recommendations * Blood cx negative , urine cx with lactose fermenting negative bacilli * CXR negative for acute pathology * Renal US with kidney stone * F/U CT scan /abdomen/pelvice , chest CTA * HIV negative , C trachomatis and N gonorrhea pending * continue IV fluids and urine straining. * F/U cortisol AM and TSH, MICAELA Hematuria likely 2/2 nephrolithiasis * pt reports dysuria and hematuria day of admission associated with fever, chills, nausea * switch abx to cefepim * Zofran for nausea * contiue IV Fluids 125 CC/hr NS * pain control Tylenol 650 Q6hr for pain and fever H/O recent URI with residual nasal congestion . H/O asthma * Albuterol nebs as needed * nasal swap negative * throat cx negative * zithromax 2/3 day, added tamiflue 75 mg BID day 1 * claritin as needed HTN , poor controlled * resume home meds Lisinopril 20 mg po daily * consider adding norvasc 5 mg po daily if continue to be elevated DM not controlled * Hold oral agents * GBM ACHS * ISS * increased insulin Levemir to 15 units HS * HGBA1c 8.6 * Diabetic diet * educated about losing weight and life style modification Hyponatremia , * NS 133 ....138...134 * Monitor BMP * Continue IV fluids Morbid obesity, chronic * BMI 37 * educated about life style modification follow up with upon DC. FEN * F: NS 125 CC/hr * E: Mild hyponatremia , monitor BMP * N: low Na , diabetic diet Proph * DVTS: SCDS both legs , early ambulations * GI: no need for now Dispo * admit to med-surg inpatient services Visit type - Emergency Visit Emergency Visit: Yes ED Registration Date: 09/07/17 Care time: The patient presented to the Emergency Department on the above date and was hospitalized for further evaluation of their emergent condition. - New Patient This patient is new to me today: No - Critical Care Critical Care patient: No
[2017-09-08] MEDS ORDERED: PT OWN MED DRAWER 7, Y5N ONE (10:18)
[2017-09-08] MEDS: AZITHROMYCIN 250 MG TABLET PO SCH (10:19)
[2017-09-08] MEDS: LISINOPRIL 20 MG TABLET (FP) PO SCH (10:20)
[2017-09-08] MEDS: LORATADINE 10 MG TABLET PO SCH (10:20)
[2017-09-08] MEDS: OSELTAMIVIR PHOSPHATE 75 MG CAPSULE PO SCH ×3 (10:30→22:32)
[2017-09-08] MEDS: ALBUTEROL SO4 0.083% IH SOL 2.5 MG/3 ML VIAL.NEB. NEB PRN ×2 (10:45→21:41)
--- NOTE | 2017-09-08 11:27 | PN ---
Teaching Attending Note Name of Resident: Robinson Galo ATTENDING PHYSICIAN STATEMENT I saw and evaluated the patient. I reviewed the resident's note and discussed the case with the resident. I agree with the resident's findings and plan as documented. SUBJECTIVE: Patient feels better, but c/o having fever on and off. Denies using any illicit drugs. No nausea or vomiting, no headache. feels better taking oral antihistamine. Denies any dysuria or hematuria. OBJECTIVE: Vital Signs Temperature 101.1 F H 09/08/17 06:00 Pulse Rate 113 H 09/08/17 06:00 Respiratory Rate 20 09/08/17 06:00 Blood Pressure 152/94 09/08/17 06:00 O2 Sat by Pulse Oximetry (%) 97 09/07/17 21:00 CBCD WBC 10.9 K/mm3 (4.0-10.0) H D 09/08/17 08:05 RBC 5.34 M/mm3 (4.00-5.60) 09/08/17 08:05 Hgb 13.9 GM/dL (11.7-16.9) 09/08/17 08:05 Hct 41.2 % (35.4-49) 09/08/17 08:05 MCV 77.1 fl (80-96) L 09/08/17 08:05 MCHC 33.7 g/dl (32.0-35.9) 09/08/17 08:05 RDW 15.6 % (11.9-15.9) 09/08/17 08:05 Plt Count 168 K/MM3 (134-434) 09/08/17 08:05 MPV 10.3 fl (7.5-11.1) 09/08/17 08:05 CMP Sodium 134 mmol/L (136-145) L 09/08/17 08:05 Potassium 4.0 mmol/L (3.5-5.1) 09/08/17 08:05 Chloride 102 mmol/L (98-107) 09/08/17 08:05 Carbon Dioxide 21 mmol/L (21-32) 09/08/17 08:05 Anion Gap 11 (8-16) 09/08/17 08:05 BUN 10 mg/dL (7-18) 09/08/17 08:05 Creatinine 0.7 mg/dL (0.7-1.3) D 09/08/17 08:05 Creat Clearance w eGFR > 60 (>60) 09/08/17 08:05 Random Glucose 214 mg/dL (74-106) H 09/08/17 08:05 Calcium 8.7 mg/dL (8.5-10.1) 09/08/17 08:05 Total Bilirubin 1.0 mg/dL (0.2-1.0) D 09/08/17 08:05 AST 31 U/L (15-37) D 09/08/17 08:05 ALT 46 U/L (12-78) D 09/08/17 08:05 Alkaline Phosphatase 94 U/L (45-117) 09/08/17 08:05 Total Protein 7.5 g/dl (6.4-8.2) 09/08/17 08:05 Albumin 3.1 g/dl (3.4-5.0) L 09/08/17 08:05 CARDIAC ENZYMES Creatine Kinase 143 IU/L (39-308) 09/07/17 07:00 Current Medications Generic Name Dose Route Start Last Admin Trade Name Freq PRN Reason Stop Dose Admin Acetaminophen 650 mg 09/07/17 01:29 09/08/17 06:07 Tylenol - PO 650 mg Q6H PRN Administration FEVER Albuterol Sulfate 1 amp 09/07/17 00:42 09/08/17 10:45 Ventolin 0.083% Nebulizer Soln - NEB 1 amp Q4H PRN Administration SHORT OF BREATH/WHEEZING Azithromycin 500 mg 09/07/17 11:15 09/08/17 10:19 Zithromax - PO 500 mg DAILY [facility] Administration Sodium Chloride 1,000 mls @ 125 mls/hr 09/07/17 00:46 09/08/17 06:06 Normal Saline - IV 125 mls/hr ASDIR [facility] Administration Cefepime HCl 2 gm/ Dextrose 100 mls @ 200 mls/hr 09/08/17 10:00 IVPB Q8H-IV [facility] Protocol Insulin Aspart 1 vial 09/07/17 07:00 09/08/17 06:07 Novolog Vial Sliding Scale - SQ 4 units ACHS [facility] Administration Protocol Insulin Detemir 15 units 09/08/17 08:03 Levemir Vial SQ HS [facility] Lisinopril 20 mg 09/07/17 10:00 09/08/17 10:20 Prinivil PO 20 mg DAILY [facility] Administration Loratadine 10 mg 09/08/17 10:00 09/08/17 10:20 Claritin - PO 10 mg DAILY [facility] Administration Ondansetron HCl 4 mg 09/07/17 16:45 Zofran Injection IVPUSH Q6H PRN NAUSEA AND/OR VOMITING Oseltamivir Phosphate 75 mg 09/08/17 10:00 Tamiflu - PO 09/13/17 09:59 BID [facility] Pseudoephedrine HCl 30 mg 09/08/17 09:49 Sudafed - PO Q4H PRN NASAL CONGESTION Home Medications Medication Instructions Recorded Glyburide 5 mg PO DAILY 09/06/17 Lisinopril [Prinivil] 20 mg PO DAILY 09/06/17 Metformin HCl 750 mg PO DAILY 09/06/17 Urine Test Results Urine Color Yellow 09/07/17 12:00 Urine Appearance Clear 09/07/17 12:00 Urine pH 7.0 (5.0-8.0) 09/07/17 12:00 Ur Specific [place] 1.018 (1.001-1.035) 09/07/17 12:00 Urine Protein Negative (NEGATIVE) 09/07/17 12:00 Urine Glucose (UA) 3+ (NEGATIVE) H 09/07/17 12:00 Urine Ketones Trace (NEGATIVE) H 09/07/17 12:00 Urine Blood Negative (NEGATIVE) 09/07/17 12:00 Urine Nitrite Negative (NEGATIVE) 09/07/17 12:00 Urine Bilirubin Negative (NEGATIVE) 09/07/17 12:00 Ur Leukocyte Esterase Negative (NEGATIVE) 09/07/17 12:00 Ur Epithelial Cells Rare /HPF (FEW) 09/06/17 19:30 Urine Bacteria Rare /hpf (NONE SEEN) 09/06/17 19:30 Urine Mucus Rare 09/06/17 19:30 Microbiology 09/07/17 12:00 Throat Throat Culture - Final NO BETA HEMOLYTIC STREPTOCOCCI ISOLATED 09/07/17 12:00 Throat Throat Culture - Final NO BETA HEMOLYTIC STREPTOCOCCI ISOLATED 09/07/17 12:00 Throat Group A Strep Rapid Antigen - Final 09/06/17 19:30 Urine - Urine Clean Catch Urine Culture - Preliminary Lactose Fermenting Neg Bacilli 09/07/17 02:00 Blood - Peripheral Venous Blood Culture - Preliminary NO GROWTH OBTAINED AFTER 24 HOURS, INCUBATION TO CONTINUE FOR 4 DAYS. 09/07/17 02:00 Blood - Peripheral Venous Blood Culture - Preliminary NO GROWTH OBTAINED AFTER 24 HOURS, INCUBATION TO CONTINUE FOR 4 DAYS. PE: Patient is tachycardic, S1S2 positive, no murmur appreciated. rest of PE per resident's note ASSESSMENT AND PLAN: Pt is 37 yo M with PMHx of HTN, NIDDM, Asthma, MACKENZIE, presenting with chills, dysuria, hematuria. # Acute sepsis with unknown source , added Cefepime by ID , Zithromax continue, added Tamiflu 75mg po bid for possible Flu, patient continues to spike, will order CT abdomen/pelvis and CTA to r/o PE, perinephric abcess. Follow the result. # NIDDM: SS with coverage also added Levemir 10 units qhs #Acute Hyponatremia: improving. #HTN: Lisinopril 20mg HS #Hematuria: due to the kidney stone , will repeat UA. DVT Px: SCDs Follow Echo follow CTA/Ct of abdomen and pelvis follow bld cx, urine cx
[2017-09-08] MEDS: CEFEPIME 2 GM in DEXTROSE 5%-WATER - 100 ML IVPB SCH ×2 (11:29→19:32)
--- NOTE | 2017-09-08 14:20 | EKG ---
Test Reason : Blood Pressure : / mmHG Vent. Rate : 095 BPM Atrial Rate : 095 BPM P-R Int : 154 ms QRS Dur : 106 ms QT Int : 332 ms P-R-T Axes : 065 066 047 degrees QTc Int : 417 ms NORMAL SINUS RHYTHM NORMAL ECG WHEN COMPARED WITH ECG OF 07-SEP-2017 00:37, NO SIGNIFICANT CHANGE WAS FOUND Confirmed by MD Raymond Edward ([id number]) on 09/08/2017 2:20:04 PM Referred By: Confirmed By:Wallace Raymond MD
[2017-09-08] MEDS ORDERED: ACETAMINOPHEN 325 MG TABLET (FP) PO PRN (15:51)
--- NOTE | 2017-09-08 16:45 | PN ---
Progress Note, Physician History of Present Illness: Remains febrile Reports headache with fever Dysuria/ hematuria resolved No suprapubic or flank tenderness Urine c/s GNR BC pending - Current Medication List Current Medications: Active Medications Acetaminophen (Tylenol -) 1,000 mg PO Q6H PRN PRN Reason: FEVER Albuterol Sulfate (Ventolin 0.083% Nebulizer Soln -) 1 amp NEB Q4H PRN PRN Reason: SHORT OF BREATH/WHEEZING Last Admin: 09/08/17 10:45 Dose: 1 amp Azithromycin (Zithromax -) 500 mg PO DAILY [facility] Last Admin: 09/08/17 10:19 Dose: 500 mg Sodium Chloride (Normal Saline -) 1,000 mls @ 125 mls/hr IV ASDIR [facility] Last Admin: 09/08/17 15:58 Dose: 125 mls/hr Cefepime HCl 2 gm/ Dextrose 100 mls @ 200 mls/hr IVPB Q8H-IV [facility] PRN Reason: Protocol Last Admin: 09/08/17 11:29 Dose: 200 mls/hr Insulin Aspart (Novolog Vial Sliding Scale -) 1 vial SQ ACHS [facility] PRN Reason: Protocol Last Admin: 09/08/17 12:02 Dose: 4 units Insulin Detemir (Levemir Vial) 15 units SQ HS [facility] Lisinopril (Prinivil) 20 mg PO DAILY [facility] Last Admin: 09/08/17 10:20 Dose: 20 mg Loratadine (Claritin -) 10 mg PO DAILY [facility] Last Admin: 09/08/17 10:20 Dose: 10 mg Oseltamivir Phosphate (Tamiflu -) 75 mg PO BID [facility] Stop: 09/13/17 09:59 Last Admin: 09/08/17 12:05 Dose: 75 mg Sodium Chloride ([place] Nasal [place] -) 2 spray NS BID PRN PRN Reason: NASAL CONGESTION - Objective Vital Signs: Vital Signs Temperature 102.6 F H 09/08/17 15:25 Pulse Rate 109 H 09/08/17 14:41 Respiratory Rate 18 09/08/17 14:41 Blood Pressure 147/84 09/08/17 14:41 O2 Sat by Pulse Oximetry (%) 98 09/08/17 10:30 Constitutional: Yes: No Distress Cardiovascular: Yes: Regular Rate and Rhythm, S1, S2 Respiratory: Yes: CTA Bilaterally Gastrointestinal: Yes: Normal Bowel Sounds, Soft, Abdomen, Obese. No: Tenderness Genitourinary: No: CVA Tenderness - Left, CVA Tenderness - Right Labs: CBC, BMP 09/08/17 08:05 09/08/17 08:05 Assessment/Plan UTI/ Sepsis secondary to UTI Continued fever Switched to cefepime pending c/s Obtain CT abdomen/pelvis, Chest
[2017-09-08] MEDS: SODIUM CHLORIDE NASAL SPRAY 44 ML BOTTLE NS PRN (22:31)
[2017-09-08] MEDS: INSULIN DETEMIR 100 UNITS/ML MDV SQ SCH (22:32)
[2017-09-09] MEDS: CEFEPIME 2 GM in DEXTROSE 5%-WATER - 100 ML IVPB SCH ×3 (02:09→12:49)
[2017-09-09] MEDS: SODIUM CHLORIDE 1,000 ML IV SCH ×2 (02:09→14:18)
[2017-09-09] MEDS: INSULIN SLIDING SCALE (NOVOLOG) 1 VIAL SQ SCH ×4 (06:05→21:30)
[2017-09-09] MEDS: ACETAMINOPHEN 500 MG TABLET (FP) PO PRN ×2 (06:05→15:13)
[2017-09-09] MEDS ORDERED: INSULIN DETEMIR 100 UNITS/ML MDV SQ ONE (07:01)
[2017-09-09 08:21] LABS: BASO % 0.4 % (0-2.0); EOS % 0.2 % (0-4.5); HEMATOCRIT 40.2 % (35.4-49); HEMOGLOBIN 13.6 GM/dL (11.7-16.9); LYMPH % 17.2 % (8-40); MCH 25.6 pg (25.7-33.7); MCHC 33.9 g/dl (32.0-35.9); MEAN CELL VOLUME 75.7 fl (80-96); MEAN PLT VOLUME 10.3 fl (7.5-11.1); MONO % 9.4 % (3.8-10.2); NEUT % 72.8 % (42.8-82.8); PLATELET COUNT 159 K/MM3 (134-434); RBC 5.31 M/mm3 (4.00-5.60); RDW 15.6 % (11.9-15.9); WHITE BLOOD COUNT 4.6 K/mm3 (4.0-10.0)
[2017-09-09 08:33] LABS: ALBUMIN 2.8 g/dl (3.4-5.0); ANION GAP 8 (8-16); BLOOD UREA NITROGEN 10 mg/dL (7-18); CALCIUM 7.8 mg/dL (8.5-10.1); CHLORIDE 103 mmol/L (98-107); CO2 23 mmol/L (21-32); GLUCOSE,RANDOM 189 mg/dL (74-106); POTASSIUM 3.8 mmol/L (3.5-5.1); SGOT/AST 47 U/L (15-37); SGPT/ALT 65 U/L (12-78); SODIUM 134 mmol/L (136-145)
[2017-09-09 08:44] LABS: ALK PHOS 94 U/L (45-117); BILIRUBIN,TOTAL 0.6 mg/dL (0.2-1.0); CREATININE 0.8 mg/dL (0.7-1.3); TOT PROT 6.6 g/dl (6.4-8.2)
[2017-09-09] MEDS: LISINOPRIL 20 MG TABLET (FP) PO SCH (11:25)
[2017-09-09] MEDS: OSELTAMIVIR PHOSPHATE 75 MG CAPSULE PO SCH ×2 (11:26→21:30)
[2017-09-09] MEDS: LORATADINE 10 MG TABLET PO SCH (11:26)
[2017-09-09] MEDS: AZITHROMYCIN 250 MG TABLET PO SCH (11:26)
--- NOTE | 2017-09-09 11:57 | PN ---
Progress Note, Physician History of Present Illness: Feeling better No c/o dysuria, hematuria no suprapubic or flank pain Remains febrile No headache Urine c/s E. coli (s) cefazolin BC (-) - Current Medication List Current Medications: Active Medications Acetaminophen (Tylenol -) 1,000 mg PO Q6H PRN PRN Reason: FEVER Last Admin: 09/09/17 06:05 Dose: 1,000 mg Albuterol Sulfate (Ventolin 0.083% Nebulizer Soln -) 1 amp NEB Q4H PRN PRN Reason: SHORT OF BREATH/WHEEZING Last Admin: 09/08/17 21:41 Dose: 1 amp Azithromycin (Zithromax -) 500 mg PO DAILY [facility] Last Admin: 09/09/17 11:26 Dose: 500 mg Sodium Chloride (Normal Saline -) 1,000 mls @ 125 mls/hr IV ASDIR [facility] Last Admin: 09/09/17 02:09 Dose: 125 mls/hr Insulin Aspart (Novolog Vial Sliding Scale -) 1 vial SQ ACHS [facility] PRN Reason: Protocol Last Admin: 09/09/17 06:05 Dose: 4 units Insulin Detemir (Levemir Vial) 15 units SQ HS [facility] Last Admin: 09/08/17 22:32 Dose: 15 units Lisinopril (Prinivil) 20 mg PO DAILY [facility] Last Admin: 09/09/17 11:25 Dose: 20 mg Loratadine (Claritin -) 10 mg PO DAILY [facility] Last Admin: 09/09/17 11:26 Dose: 10 mg Oseltamivir Phosphate (Tamiflu -) 75 mg PO BID [facility] Stop: 09/13/17 09:59 Last Admin: 09/09/17 11:26 Dose: 75 mg Sodium Chloride ([place] Nasal [place] -) 2 spray NS BID PRN PRN Reason: NASAL CONGESTION Last Admin: 09/08/17 22:31 Dose: 2 spray - Objective Vital Signs: Vital Signs Temperature 103.0 F H 09/09/17 06:00 Pulse Rate 108 H 09/09/17 06:00 Respiratory Rate 20 09/09/17 06:00 Blood Pressure 140/85 09/09/17 06:00 O2 Sat by Pulse Oximetry (%) 99 09/08/17 21:00 Constitutional: Yes: No Distress, Obese Eyes: Yes: Conjunctiva Clear Cardiovascular: Yes: Regular Rate and Rhythm, S1, S2 Respiratory: Yes: CTA Bilaterally Gastrointestinal: Yes: Normal Bowel Sounds, Soft. No: Tenderness Genitourinary: No: CVA Tenderness - Left, CVA Tenderness - Right Edema: No Labs: CBC, BMP 09/09/17 06:30 09/09/17 07:30 Assessment/Plan UTI/ Sepsis secondary to UTI Continued fever Switched to cefazolin CT scans noted
[2017-09-09] MEDS: CEFAZOLIN 2 GM/D5W 2 GM/50 ML ML IVPB SCH ×2 (14:16→17:41)
--- NOTE | 2017-09-09 16:52 | PN ---
Physical Exam: SUBJECTIVE: Patient seen and examined at bedside. continued to have fever 103 this AM, still complain of nasal congestion, but denies any urinary symptoms or hematuria. denies any chest pain , sob,N/V/D/C. OBJECTIVE: Vital Signs Period Temp Pulse Resp BP Sys/[place] Pulse Ox Last 24 Hr 99.2 F-103.0 F 80-108 18-20 122-152/66-91 97-99 GENERAL: AAOx3 in NAD , febrile HEAD: NC/AT EYES: EOMI, Conjunctiva clear, sclera anicteric ENT: moist mucous membrane NECK: Supple, no JVD LUNGS: CTA B/L, no crackles no wheezing no accessory muscle use. HEART: RRR, NSR, normal s1, s2, murmur no M/R/G ABDOMEN: Soft, ND, NT, +BS 4 Q, no CVA Tenderness LOWER EXTREMITIES: no edema, +2DP pulse, NEUROLOGICAL: No focal deficit. Normal speech. gait not observed. PSYCHIATRIC: Cooperative. Good eye contact. Appropriate mood and affect. SKIN: Warm, dry, Laboratory Results - last 24 hr 09/08/17 09/08/17 09/09/17 17:14 22:29 06:04 WBC RBC Hgb Hct MCV MCH MCHC RDW Plt Count MPV Neutrophils % Lymphocytes % Monocytes % Eosinophils % Basophils % Sodium Potassium Chloride Carbon Dioxide Anion Gap BUN Creatinine Creat Clearance w eGFR POC Glucometer 213 217 232 Random Glucose Calcium Total Bilirubin AST ALT Alkaline Phosphatase Total Protein Albumin TSH Free T4 09/09/17 09/09/17 09/09/17 06:30 07:30 07:30 WBC 4.6 D RBC 5.31 Hgb 13.6 Hct 40.2 MCV 75.7 L MCH 25.6 L MCHC 33.9 RDW 15.6 Plt Count 159 MPV 10.3 Neutrophils % 72.8 Lymphocytes % 17.2 D Monocytes % 9.4 Eosinophils % 0.2 Basophils % 0.4 D Sodium 134 L Potassium 3.8 Chloride 103 Carbon Dioxide 23 Anion Gap 8 BUN 10 Creatinine 0.8 Creat Clearance w eGFR > 60 POC Glucometer Random Glucose 189 H Calcium 7.8 L Total Bilirubin 0.6 D AST 47 H D ALT 65 D Alkaline Phosphatase 94 Total Protein 6.6 Albumin 2.8 L TSH 0.30 L Free T4 0.94 Cancelled 09/09/17 12:09 WBC RBC Hgb Hct MCV MCH MCHC RDW Plt Count MPV Neutrophils % Lymphocytes % Monocytes % Eosinophils % Basophils % Sodium Potassium Chloride Carbon Dioxide Anion Gap BUN Creatinine Creat Clearance w eGFR POC Glucometer 226 Random Glucose Calcium Total Bilirubin AST ALT Alkaline Phosphatase Total Protein Albumin TSH Free T4 Active Medications Generic Name Dose Route Start Last Admin Trade Name Freq PRN Reason Stop Dose Admin Acetaminophen 1,000 mg 09/08/17 19:08 09/09/17 15:13 Tylenol - PO 1,000 mg Q6H PRN Administration FEVER Albuterol Sulfate 1 amp 09/07/17 00:42 09/08/17 21:41 Ventolin 0.083% Nebulizer Soln - NEB 1 amp Q4H PRN Administration SHORT OF BREATH/WHEEZING Azithromycin 500 mg 09/07/17 11:15 09/09/17 11:26 Zithromax - PO 500 mg DAILY [facility] Administration Cefazolin Sodium/Dextrose 2 gm in 50 mls @ 100 mls/hr 09/09/17 12:45 14:16 Ancef 2 Gm Premixed Ivpb - IVPB 100 mls/hr Q8H-IV [facility] Administration Sodium Chloride 1,000 mls @ 100 mls/hr 09/09/17 12:52 09/09/17 14:18 Normal Saline - IV 100 mls/hr ASDIR [facility] Administration Insulin Aspart 1 vial 09/07/17 07:00 09/09/17 12:15 Novolog Vial Sliding Scale - SQ 4 units ACHS [facility] Administration Protocol Insulin Detemir 15 units 09/08/17 08:03 09/08/17 22:32 Levemir Vial SQ 15 units HS [facility] Administration Lisinopril 20 mg 09/07/17 10:00 09/09/17 11:25 Prinivil PO 20 mg DAILY [facility] Administration Loratadine 10 mg 09/08/17 10:00 09/09/17 11:26 Claritin - PO 10 mg DAILY [facility] Administration Oseltamivir Phosphate 75 mg 09/08/17 10:00 09/09/17 11:26 Tamiflu - PO 09/13/17 09:59 75 mg BID [facility] Administration Sodium Chloride 2 spray 09/08/17 11:28 09/08/17 22:31 [place] Balsam Nasal Balsam - NS 2 spray BID PRN Administration NASAL CONGESTION CBC, BMP 09/09/17 06:30 09/09/17 07:30 ASSESSMENT/PLAN: t is 37 yo M with PMHx of HTN, NIDDM, Asthma, MACKENZIE, recent URI presented with fever, chills, dysuria, hematuria. Sepsis 2/2 UTI vs URI vs pyelonephrirtis vs prostatis vs unknown sources * continue to have fever 103.0 , wbc trending down to 4.6. CRP 16, ESR 29 * UA positive for infection * Continue Rocephin 2 gm IVBP daily, switch to cefazoli per ID recommendations * Blood cx negative , urine cx with lactose fermenting negative bacilli * CXR negative for acute pathology * Renal US with kidney stone possible pyelonephritis * CT scan /abdomen/pelvic , chest CTA negative but has a bulg disk that can follow as out pt * HIV negative , C. Trachomatis and N gonorrhea pending * continue IV fluids and urine straining. * F/U cortisol AM and TSH low f.u Ft4, MICAELA * F/U echocardiogram result * US douplex negative for DVT * SURINDER was done with normal sphincter tone and no prostate tenderness * repeat blood cx Hematuria likely 2/2 nephrolithiasis * pt reports dysuria and hematuria day of admission associated with fever, chills, nausea * switch abx to cefepim * Zofran for nausea * continue IV Fluids 100 CC/hr NS * pain control Tylenol 650 Q6hr for pain and fever H/O recent URI with residual nasal congestion . H/O asthma * Albuterol nebs as needed * nasal swap negative * throat cx negative * zithromax 2/3 day, added tamiflue 75 mg BID day 1 * claritin as needed HTN , poor controlled * resume home meds Lisinopril 20 mg po daily * consider adding norvasc 5 mg po daily if continue to be elevated DM not controlled * Hold oral agents * GBM ACHS * ISS * increased insulin Levemir to 15 units HS * HGBA1c 8.6 * Diabetic diet * educated about losing weight and life style modification Bulged disk L4-L5 on CT scan .with no symptoms will f/u as out pt. Hyponatremia , * NS 133 ....138...134 * Monitor BMP * Continue IV fluids Morbid obesity, chronic * BMI 37 * educated about life style modification follow up with upon DC. FEN * F: NS 100 CC/hr * E: Mild hyponatremia , monitor BMP * N: low Na , diabetic diet Proph * DVTS: SCDS both legs , early ambulations * GI: no need for now Dispo * admit to med-surg inpatient services Visit type - Emergency Visit Emergency Visit: Yes ED Registration Date: 09/07/17 Care time: The patient presented to the Emergency Department on the above date and was hospitalized for further evaluation of their emergent condition. - New Patient This patient is new to me today: No - Critical Care Critical Care patient: No
--- NOTE | 2017-09-09 18:18 | PN ---
Teaching Attending Note Name of Resident: Robinson Galo ATTENDING PHYSICIAN STATEMENT I saw and evaluated the patient. I reviewed the resident's note and discussed the case with the resident. I agree with the resident's findings and plan as documented. SUBJECTIVE: fever no chills . has no abd pain . no SOB or cough . no rectal pain or dysuria . OBJECTIVE: NAD , no neck rigidity CV: RRR Lungs: CTAB ext: no edema Abd: soft, NT, ND , NL BS, no CVA tenderness rectal: nl hair distribution. prostate was not felt , but no tenderness on anterior wall of rectum . MS: no TTP over spine in C/t/l areas ASSESSMENT AND PLAN: 37 y/o man with h/o HTN, DM , MACKENZIE , and asthma who presented with fever and dysuria and was found to have sepsis form complicated UTI/Pyelo 1- Sepsis 2/2 complicated UTI/pyelonephritis . cont ot have fever but feels better . although CT did not show stranding around kidneys, pyelnephritis is still a possibility - repeat blood cx sent - cont cefazolin . Dc azithro . cont tamiflu - rectal exam did not demonstrate any pain in anterior wall, but prostate was not felt . can't r/o prostatitis - US of LE no DVT - no other source of fever on CT C/A/P - peripheral smear - no TTP over spine or any meningial signs 2- Bulged disk L4-L5 on CT scan . could be compromizing canal. pt notified . aware of the need for out pt MRI and neuro sx f/u 3- DM : SSI 4- HTN: lisinopril dispo: HLOC
[2017-09-09] MEDS: amLODIPine BESYLATE 5 MG TABLET (FP) PO SCH (18:36)
[2017-09-09] MEDS ORDERED: INSULIN (NOVOLOG) ASPART 100 UNITS/ML 10ML VIAL ONE (18:58)
[2017-09-09] MEDS: INSULIN DETEMIR 100 UNITS/ML MDV SQ SCH (21:30)
[2017-09-09] MEDS: SODIUM CHLORIDE NASAL SPRAY 44 ML BOTTLE NS PRN (21:30)
[2017-09-10] MEDS: CEFAZOLIN 2 GM/D5W 2 GM/50 ML ML IVPB SCH ×3 (01:34→17:48)
[2017-09-10] MEDS: SODIUM CHLORIDE 1,000 ML IV SCH ×2 (01:38→15:58)
[2017-09-10] MEDS: INSULIN SLIDING SCALE (NOVOLOG) 1 VIAL SQ SCH ×4 (06:21→21:51)
[2017-09-10 07:44] LABS: BASO % 0.5 % (0-2.0); EOS % 1.7 % (0-4.5); HEMATOCRIT 40.6 % (35.4-49); HEMOGLOBIN 13.7 GM/dL (11.7-16.9); LYMPH % 33.9 % (8-40); MCH 25.7 pg (25.7-33.7); MCHC 33.7 g/dl (32.0-35.9); MEAN CELL VOLUME 76.3 fl (80-96); MEAN PLT VOLUME 9.8 fl (7.5-11.1); MONO % 13.5 % (3.8-10.2); NEUT % 50.4 % (42.8-82.8); PLATELET COUNT 167 K/MM3 (134-434); RBC 5.33 M/mm3 (4.00-5.60); RDW 16.4 % (11.9-15.9); WHITE BLOOD COUNT 4.2 K/mm3 (4.0-10.0)
[2017-09-10 08:39] LABS: CHLORIDE 103 mmol/L (98-107); SODIUM 135 mmol/L (136-145)
[2017-09-10] MEDS ORDERED: INSULIN DETEMIR 100 UNITS/ML MDV SQ SCH (08:41)
[2017-09-10 08:46] LABS: ALBUMIN 2.7 g/dl (3.4-5.0); ALK PHOS 96 U/L (45-117); ANION GAP 8 (8-16); BILIRUBIN,TOTAL 0.6 mg/dL (0.2-1.0); BLOOD UREA NITROGEN 8 mg/dL (7-18); CALCIUM 7.6 mg/dL (8.5-10.1); CO2 24 mmol/L (21-32); CREATININE 0.7 mg/dL (0.7-1.3); GLUCOSE,RANDOM 200 mg/dL (74-106); SGOT/AST 41 U/L (15-37); SGPT/ALT 65 U/L (12-78); TOT PROT 6.7 g/dl (6.4-8.2)
[2017-09-10] MEDS ORDERED: PT OWN MED DRAWER 7, Y5N ONE ×3 (09:51→18:04)
[2017-09-10] MEDS: OSELTAMIVIR PHOSPHATE 75 MG CAPSULE PO SCH ×2 (09:59→21:50)
[2017-09-10] MEDS: LORATADINE 10 MG TABLET PO SCH (09:59)
[2017-09-10] MEDS: amLODIPine BESYLATE 5 MG TABLET (FP) PO SCH (09:59)
[2017-09-10] MEDS: LISINOPRIL 20 MG TABLET (FP) PO SCH (10:00)
--- NOTE | 2017-09-10 12:15 | PN ---
Progress Note, Physician History of Present Illness: Doing well. Feeling better No c/o dysuria, hematuria no suprapubic or flank pain No headache Afebrile today Urine c/s E. coli (s) cefazolin BC (-) - Current Medication List Current Medications: Active Medications Acetaminophen (Tylenol -) 1,000 mg PO Q6H PRN PRN Reason: FEVER Last Admin: 09/09/17 15:13 Dose: 1,000 mg Albuterol Sulfate (Ventolin 0.083% Nebulizer Soln -) 1 amp NEB Q4H PRN PRN Reason: SHORT OF BREATH/WHEEZING Last Admin: 09/08/17 21:41 Dose: 1 amp Amlodipine Besylate (Norvasc -) 5 mg PO DAILY [facility] Last Admin: 09/10/17 09:59 Dose: 5 mg Cefazolin Sodium/Dextrose (Ancef 2 Gm Premixed Ivpb -) 2 gm in 50 mls @ 100 mls /hr IVPB Q8H-IV [facility] Last Admin: 09/10/17 10:00 Dose: 100 mls/hr Sodium Chloride (Normal Saline -) 1,000 mls @ 100 mls/hr IV ASDIR [facility] Last Admin: 09/10/17 01:38 Dose: 100 mls/hr Insulin Aspart (Novolog Vial Sliding Scale -) 1 vial SQ ACHS [facility] PRN Reason: Protocol Last Admin: 09/10/17 06:21 Dose: 4 units Insulin Detemir (Levemir Vial) 17 units SQ HS [facility] Lisinopril (Prinivil) 20 mg PO DAILY [facility] Last Admin: 09/10/17 10:00 Dose: 20 mg Loratadine (Claritin -) 10 mg PO DAILY [facility] Last Admin: 09/10/17 09:59 Dose: 10 mg Oseltamivir Phosphate (Tamiflu -) 75 mg PO BID [facility] Stop: 09/13/17 09:59 Last Admin: 09/10/17 09:59 Dose: 75 mg Sodium Chloride ([place] Nasal [place] -) 2 spray NS BID PRN PRN Reason: NASAL CONGESTION Last Admin: 09/09/17 21:30 Dose: 2 spray - Objective Vital Signs: Vital Signs Temperature 99.5 F 09/10/17 06:00 Pulse Rate 86 09/10/17 06:00 Respiratory Rate 18 09/10/17 06:00 Blood Pressure 132/70 09/10/17 06:00 O2 Sat by Pulse Oximetry (%) 97 09/09/17 21:00 Constitutional: Yes: No Distress Eyes: Yes: Conjunctiva Clear Cardiovascular: Yes: Regular Rate and Rhythm, S1, S2 Respiratory: Yes: CTA Bilaterally Gastrointestinal: Yes: Normal Bowel Sounds, Soft, Abdomen, Obese. No: Tenderness Edema: No Labs: CBC, BMP 09/10/17 06:30 09/10/17 06:30 Assessment/Plan UTI/ Sepsis secondary to UTI Fever- resolved Switched to cefazolin Blood c/s no growth If stable, substitute levaquin 750mg po qd x 10d
--- NOTE | 2017-09-10 12:36 | PN ---
Physical Exam: SUBJECTIVE: Patient seen and examined, NO fever over night , no new complaint and asking to go home. OBJECTIVE: Vital Signs Period Temp Pulse Resp BP Sys/Molina Pulse Ox Last 24 Hr 99 F-102.1 F 80-95 18-20 132-151/70-91 97 GENERAL: AAOx3 in NAD ,non febrile HEAD: NC/AT EYES: EOMI, Conjunctiva clear, sclera anicteric ENT: moist mucous membrane NECK: Supple, no JVD LUNGS: CTA B/L, no crackles no wheezing no accessory muscle use. HEART: RRR, NSR, normal s1, s2, murmur no M/R/G ABDOMEN: Soft, ND, NT, +BS 4 Q, no CVA Tenderness LOWER EXTREMITIES: no edema, +2DP pulse, NEUROLOGICAL: No focal deficit. Normal speech. gait not observed. PSYCHIATRIC: Cooperative. Good eye contact. Appropriate mood and affect. SKIN: Warm, dry, Laboratory Results - last 24 hr 09/09/17 09/09/17 09/09/17 12:09 17:19 21:29 WBC RBC Hgb Hct MCV MCH MCHC RDW Plt Count MPV Neutrophils % Lymphocytes % Monocytes % Eosinophils % Basophils % Sodium Potassium Chloride Carbon Dioxide Anion Gap BUN Creatinine Creat Clearance w eGFR POC Glucometer 226 251 251 Random Glucose Calcium Total Bilirubin AST ALT Alkaline Phosphatase Total Protein Albumin 09/10/17 09/10/17 09/10/17 06:20 06:30 06:30 WBC 4.2 RBC 5.33 Hgb 13.7 Hct 40.6 MCV 76.3 L MCH 25.7 MCHC 33.7 RDW 16.4 H Plt Count 167 MPV 9.8 Neutrophils % 50.4 D Lymphocytes % 33.9 D Monocytes % 13.5 H Eosinophils % 1.7 D Basophils % 0.5 Sodium 135 L Potassium 4.0 Chloride 103 Carbon Dioxide 24 Anion Gap 8 BUN 8 Creatinine 0.7 Creat Clearance w eGFR > 60 POC Glucometer 201 Random Glucose 200 H Calcium 7.6 L Total Bilirubin 0.6 AST 41 H ALT 65 Alkaline Phosphatase 96 Total Protein 6.7 Albumin 2.7 L 09/10/17 11:58 WBC RBC Hgb Hct MCV MCH MCHC RDW Plt Count MPV Neutrophils % Lymphocytes % Monocytes % Eosinophils % Basophils % Sodium Potassium Chloride Carbon Dioxide Anion Gap BUN Creatinine Creat Clearance w eGFR POC Glucometer 214 Random Glucose Calcium Total Bilirubin AST ALT Alkaline Phosphatase Total Protein Albumin Active Medications Generic Name Dose Route Start Last Admin Trade Name Freq PRN Reason Stop Dose Admin Acetaminophen 1,000 mg 09/08/17 19:08 09/09/17 15:13 Tylenol - PO 1,000 mg Q6H PRN Administration FEVER Albuterol Sulfate 1 amp 09/07/17 00:42 09/08/17 21:41 Ventolin 0.083% Nebulizer Soln - NEB 1 amp Q4H PRN Administration SHORT OF BREATH/WHEEZING Amlodipine Besylate 5 mg 09/09/17 18:15 09/10/17 09:59 Norvasc - PO 5 mg DAILY SIDNEY Administration Cefazolin Sodium/Dextrose 2 gm in 50 mls @ 100 mls/hr 09/09/17 12:45 10:00 Ancef 2 Gm Premixed Ivpb - IVPB 100 mls/hr Q8H-IV SIDNEY Administration Sodium Chloride 1,000 mls @ 100 mls/hr 09/09/17 12:52 09/10/17 01:38 Normal Saline - IV 100 mls/hr ASDIR SIDNEY Administration Insulin Aspart 1 vial 09/07/17 07:00 09/10/17 12:17 Novolog Vial Sliding Scale - SQ 4 units ACHS SIDNEY Administration Protocol Insulin Detemir 17 units 09/10/17 08:41 Levemir Vial SQ HS SIDNEY Lisinopril 20 mg 09/07/17 10:00 09/10/17 10:00 Prinivil PO 20 mg DAILY SIDNEY Administration Loratadine 10 mg 09/08/17 10:00 09/10/17 09:59 Claritin - PO 10 mg DAILY SIDNEY Administration Oseltamivir Phosphate 75 mg 09/08/17 10:00 09/10/17 09:59 Tamiflu - PO 09/13/17 09:59 75 mg BID SIDNEY Administration Sodium Chloride 2 spray 09/08/17 11:28 09/09/17 21:30 [place] Nasal [place] - NS 2 spray BID PRN Administration NASAL CONGESTION CBC, BMP 09/10/17 06:30 09/10/17 06:30 ASSESSMENT/PLAN: Pt is 37 yo M with PMHx of HTN, NIDDM, Asthma, MACKENZIE, recent URI presented with fever, chills, dysuria, hematuria. Sepsis 2/2 pyelonephrirtis vs URI, improving * NO fever, WBC normal * continue cefazolin 2gm Q8hr day 2 , , substitute Levaquin 750mg po qd x 10d upon DC per ID * Blood cx negative , urine cx with lactose fermenting negative bacilli, repeat Blood cx negative * HIV negative , C. Trachomatis and N gonorrhea pending * continue IV fluids and urine straining. * TSH low Ft4 0.94, need follow up as out pt for sub clinical hyperthyroidism * echocardiogram : EF 50.5 % normal valve and ventricular size * US douplex negative for DVT Hematuria likely 2/2 nephrolithiasis , resolved * pt reports dysuria and hematuria day of admission associated with fever, chills, nausea * switch abx to cefazolin 2gm q8hr * Zofran for nausea * continue IV Fluids 100 CC/hr NS * pain control Tylenol 650 Q6hr for pain and fever H/O recent URI with residual nasal congestion , resolved . H/O asthma , * Albuterol nebs as needed * zithromax 2/3 day, added tamiflue 75 mg BID day 2 * claritin as needed HTN , poor controlled * resume home meds Lisinopril 20 mg po daily , will dc on lisinopril 30 daily * consider adding norvasc 5 mg po daily if continue to be elevated DM not controlled * Hold oral agents * GBM ACHS * ISS * increased insulin Levemir to 17 units HS * HGBA1c 8.6 * Diabetic diet * educated about losing weight and life style modification Bulged disk L4-L5 on CT scan .with no symptoms will f/u as out pt. Subclinical hyperthyroidism , Low TSHa nd Normal ft4 follow up as out pt. Hyponatremia , * NS 133 ....138...134 * Monitor BMP * Continue IV fluids Morbid obesity, chronic * BMI 37 * educated about life style modification follow up with upon DC. FEN * F: NS 100 CC/hr * E: Mild hyponatremia , monitor BMP * N: low Na , diabetic diet Proph * DVTS: SCDS both legs , early ambulations * GI: no need for now Dispo * admit to med-surg inpatient services Visit type - Emergency Visit Emergency Visit: Yes ED Registration Date: 09/07/17 Care time: The patient presented to the Emergency Department on the above date and was hospitalized for further evaluation of their emergent condition. - New Patient This patient is new to me today: No - Critical Care Critical Care patient: No
[2017-09-10] MEDS ORDERED: INSULIN (NOVOLOG) ASPART 100 UNITS/ML 10ML VIAL ONE (18:03)
[2017-09-10] MEDS ORDERED: INSULIN DETEMIR 100 UNITS/ML MDV SQ ONE (18:05)
--- NOTE | 2017-09-10 18:46 | PN ---
Teaching Attending Note Name of Resident: Robinson Galo ATTENDING PHYSICIAN STATEMENT I saw and evaluated the patient. I reviewed the resident's note and discussed the case with the resident. I agree with the resident's findings and plan as documented. SUBJECTIVE: no fever or chills. feels much better OBJECTIVE: NAD CV: RRR Lungs: CTAB ext: no edema Abd: soft, NT, ND , NL BS, no CVA tenderness ASSESSMENT AND PLAN: 37 y/o man with h/o HTN, DM , MACKENZIE , and asthma who presented with fever and dysuria and was found to have sepsis form complicated UTI/Pyelo 1- Sepsis 2/2 complicated UTI/pyelonephritis . last fever 6 pm yesterday improved cont cefazolin ( day 14 of Abx ) . if no fever by tomorrow am will switch to levaquin . appreciate ID help 2- Bulged disk L4-L5 on CT scan . could be compromising canal.pt is aware of the need for out pt MRI and neuro sx f/u 3- DM : SSI and increase levemir 4- HTN: lisinopril , add norvasc dispo: HLOC
[2017-09-11] MEDS: SODIUM CHLORIDE 1,000 ML IV SCH (02:01)
[2017-09-11] MEDS: CEFAZOLIN 2 GM/D5W 2 GM/50 ML ML IVPB SCH ×2 (02:01→10:47)
[2017-09-11] MEDS: INSULIN SLIDING SCALE (NOVOLOG) 1 VIAL SQ SCH ×2 (06:32→11:58)
[2017-09-11 07:41] VITALS: PULSE 73
[2017-09-11 08:23] LABS: BASO % 0.5 % (0-2.0); HEMATOCRIT 39.1 % (35.4-49); HEMOGLOBIN 13.3 GM/dL (11.7-16.9); LYMPH % 32.4 % (8-40); MCH 25.7 pg (25.7-33.7); MEAN CELL VOLUME 75.5 fl (80-96); MONO % 11.6 % (3.8-10.2); NEUT % 52.5 % (42.8-82.8); PLATELET COUNT 173 K/MM3 (134-434); RBC 5.17 M/mm3 (4.00-5.60); WHITE BLOOD COUNT 5.2 K/mm3 (4.0-10.0)
[2017-09-11 08:43] LABS: ALBUMIN 2.6 g/dl (3.4-5.0); ANION GAP 10 (8-16); BILIRUBIN,TOTAL 0.4 mg/dL (0.2-1.0); BLOOD UREA NITROGEN 10 mg/dL (7-18); CALCIUM 8.4 mg/dL (8.5-10.1); CHLORIDE 103 mmol/L (98-107); CO2 25 mmol/L (21-32); CREATININE 0.6 mg/dL (0.7-1.3); GLUCOSE,RANDOM 197 mg/dL (74-106); POTASSIUM 4.1 mmol/L (3.5-5.1); SGOT/AST 32 U/L (15-37); SGPT/ALT 58 U/L (12-78); SODIUM 138 mmol/L (136-145); TOT PROT 6.6 g/dl (6.4-8.2)
[2017-09-11 08:44] LABS: ALK PHOS 92 U/L (45-117)
[2017-09-11] MEDS ORDERED: PT OWN MED DRAWER 7, Y5N ONE ×2 (10:33→10:58)
[2017-09-11] MEDS: OSELTAMIVIR PHOSPHATE 75 MG CAPSULE PO SCH (10:43)
[2017-09-11] MEDS: amLODIPine BESYLATE 5 MG TABLET (FP) PO SCH (10:43)
[2017-09-11] MEDS: LORATADINE 10 MG TABLET PO SCH (10:44)
[2017-09-11] MEDS: LISINOPRIL 20 MG TABLET (FP) PO SCH (10:46)
[2017-09-11 11:07] VITALS: BP 150/95; TEMP 97.4
--- NOTE | 2017-09-11 13:15 | PN ---
Teaching Attending Note Name of Resident: Robinson Galo ATTENDING PHYSICIAN STATEMENT I saw and evaluated the patient. I reviewed the resident's note and discussed the case with the resident. I agree with the resident's findings and plan as documented. SUBJECTIVE: No fever or chills. no abd pain . OBJECTIVE: NAD CV: RRR Lungs: CTAB ext: no edema Abd: soft, NT, ND , NL BS, no CVA tenderness ASSESSMENT AND PLAN: 37 y/o man with h/o HTN, DM , MACKENZIE , and asthma who presented with fever and dysuria and was found to have sepsis form complicated UTI/Pyelo 1- Sepsis 2/2 complicated UTI/pyelonephritis . fever resolved improved switch to levaquin 750 mg x 10 more days to complete 14 days of treatment if UTI recurs, he need urology f/u , he understands 2- Bulged disk L4-L5 on CT scan . could be compromising canal.pt is aware of the need for out pt MRI and neuro sx f/u. he said he will f/u with his 's surgeon 3- DM :at dc will send home on increased dose of glyburide and metformin ( 10 and 1000 BId ) due to poor control and needing insuin here 4- HTN: lisinopril increased to 30 at dc dc home today .
--- NOTE | 2017-09-11 18:45 | DS ---
Physical Exam: SUBJECTIVE: Patient seen and examined, NO fever over night , no new complaint and asking to go home. OBJECTIVE: Vital Signs Period Temp Pulse Resp BP Sys/Molina Pulse Ox Last 24 Hr 97.4 F-98.6 F 73-80 20-20 113-150/62-95 PHYSICAL EXAM GENERAL: AAOx3 in NAD ,non febrile HEAD: NC/AT EYES: EOMI, Conjunctiva clear, sclera anicteric ENT: moist mucous membrane NECK: Supple, no JVD LUNGS: CTA B/L, no crackles no wheezing no accessory muscle use. HEART: RRR, NSR, normal s1, s2, murmur no M/R/G ABDOMEN: Soft, ND, NT, +BS 4 Q, no CVA Tenderness LOWER EXTREMITIES: no edema, +2DP pulse, NEUROLOGICAL: No focal deficit. Normal speech. gait not observed. PSYCHIATRIC: Cooperative. Good eye contact. Appropriate mood and affect. SKIN: Warm, dry, LABS Laboratory Results - last 24 hr 09/09/17 09/10/17 09/10/17 07:30 17:23 17:26 WBC RBC Hgb Hct MCV MCH MCHC RDW Plt Count MPV Neutrophils % Lymphocytes % Monocytes % Eosinophils % Basophils % Sodium Potassium Chloride Carbon Dioxide Anion Gap BUN Creatinine Creat Clearance w eGFR POC Glucometer 156 187 Random Glucose Calcium Total Bilirubin AST ALT Alkaline Phosphatase Total Protein Albumin Cortisol AM Sample 14.3 09/10/17 09/11/17 09/11/17 21:49 05:46 07:00 WBC 5.2 RBC 5.17 Hgb 13.3 Hct 39.1 MCV 75.5 L MCH 25.7 MCHC 34.0 RDW 16.0 H Plt Count 173 MPV 10.0 Neutrophils % 52.5 Lymphocytes % 32.4 Monocytes % 11.6 H Eosinophils % 3.0 Basophils % 0.5 Sodium Potassium Chloride Carbon Dioxide Anion Gap BUN Creatinine Creat Clearance w eGFR POC Glucometer 240 199 Random Glucose Calcium Total Bilirubin AST ALT Alkaline Phosphatase Total Protein Albumin Cortisol AM Sample 09/11/17 09/11/17 07:00 11:21 WBC RBC Hgb Hct MCV MCH MCHC RDW Plt Count MPV Neutrophils % Lymphocytes % Monocytes % Eosinophils % Basophils % Sodium 138 Potassium 4.1 Chloride 103 Carbon Dioxide 25 Anion Gap 10 BUN 10 D Creatinine 0.6 L Creat Clearance w eGFR > 60 POC Glucometer 213 Random Glucose 197 H Calcium 8.4 L Total Bilirubin 0.4 D AST 32 D ALT 58 Alkaline Phosphatase 92 Total Protein 6.6 Albumin 2.6 L Cortisol AM Sample CBC, BMP 09/11/17 07:00 09/11/17 07:00 HOSPITAL COURSE: Date of Admission:09/07/17 Date of Discharge: 09/11/17 a 37 yo M with PMHx of HTN, NIDDM, Asthma, MACKENZIE, recent URI presented with fever, chills, dysuria, hematuria. was found to have Sepsis 2/2 pyelonephrirtis vs URI, improving ,NO fever, WBC normal last 48 hours treated with iv inpatient antibiotics and will be send home with substitute Levaquin 750mg po qd x 10d upon DC per ID . Blood cx negative , urine cx with lactose fermenting negative bacilli, repeat Blood cx negative .HIV negative , C. Trachomatis and N gonorrhea pending . TSH low Ft4 0.94, need follow up as out pt for sub clinical hyperthyroidism. echocardiogram : EF 50.5 % normal valve and ventricular size .US douplex negative for DVT. pt was found to have Hematuria likely 2/2 nephrolithiasis , resolved.pt reports dysuria and hematuria day of admission associated with fever, chills, nausea. treated with abx an zofran, IV fluids and pain control . and hematuria has been resolved.pt has H/O recent URI with residual nasal congestion , resolved .treataed with Albuterol nebs as needed,zithromax 3 days,, added tamiflue 75 mg BID day 2 and 3 days as out pt of tamiflu. for HTN , poor controlled will be send home with lisinopril 30 mg po daily with close BP monitor and follow up with PCP. for DM not controlled ,tretaed inpatient with 17 units of levemir and ISS and will be send home on oral pills Metformin 1000 mg BID and Glupiride 10 mg po daily.his HgbA1c 8.9 and was educated about modified life style , diabetic diet.He also was found to have Bulged disk L4-L5 on CT scan .with no symptoms will f/u as out pt.he has Morbid obesity with BMI 37 educated about life style modification follow up with upon DC.pt discharged home with pcp, endocrinology and ID , surgery follow up. Minutes to complete discharge: 40 Discharge Summary Reason For Visit: SEPSIS DUE TO URINARY TRACT INFECTION Condition: Improved - Instructions Diet, Activity, Other Instructions: You were admitted to the hospital due to infection in your bladder and kidneys, for which you completed a course if intravenous antibiotics. You will need to take oral antibiotics at home (10 day course of Levaquin 750 mg daily) and follow up with your primary doctor when you're done. start levaquin at 5 pm this evening Please take all your medications as prescribed Lisinopril has been increased to 30 mg daily for blood pressure. Monitor your blood pressure daily You thyroid function was found to be elevated. This could be a reaction to infection or a primary problem. You need to repeat TSH (thyroid blood test) as out patient with your primary physician. For diabetes please resume your home medications. There is no need for insulin at this time, please monitor your blood sugar daily and follow up with your primary doctor. increase glyburide to 10 mg daily . increase metformin to 1000 mg twice daily check your sugar three times a day and repot to your doctor take your blood pressure daily and take log to your doctor You were found to have bulged disk pressing on the nerves and you need to follow up with neurosurgery for that as out patient Dr Destin Tovar. You can follow up with dr Byrd if you are interested in weight loss surgery Please see your primary doctor in 2 weeks. If you develop fever, chills or your symptoms worsen please return to emergency room [facility]. Referrals: Tom Byrd MD [Staff Physician] - 1 Month Eder Lopez MD [Staff Physician] - 2 Weeks Destin Roach MD, FAANS [Staff Physician] - 1 Week Jeyson Pineda [Primary Care Provider] - 1 Week Disposition: HOME - Home Medications Comprehensive Discharge Medication List: Ambulatory Orders Glyburide 10 mg PO DAILY #60 tablet 09/11/17 Levofloxacin [Levaquin] 750 mg PO DAILY #10 tablet 09/11/17 Lisinopril [Zestril] 30 mg PO DAILY #30 tablet 09/11/17 Metformin HCl [Metformin HCl ER] 1,000 mg PO BID #60 tab.er.24 09/11/17 Oseltamivir Phosphate [Tamiflu -] 75 mg PO BID #5 capsule 09/11/17 This patient is new to me today: No Emergency Visit: Yes ED Registration Date: 09/07/17 Care time: The patient presented to the Emergency Department on the above date and was hospitalized for further evaluation of their emergent condition. Critical Care patient: No - Discharge Referral Referred to [facility] No
== END 2017-09-11 14:03 | disposition home or self-care (01) | DRG 872 ==
LOC: JER 18:25 → JERBED 23:23 → UNDOADMOB 23:23 → JERBED 09-07 01:40 → J5S 09-07 01:40 → JERBED 09-07 01:42 → INTOOBSV 09-07 11:06 → OBSVTOIN 09-07 11:06 → J5S 09-10 20:02
PROVIDERS: ADMIT Internal Medicine; ATTEND Internal Medicine
DX: A41.9 Sepsis, unspecified organism (principal); E87.2 Acidosis; N39.0 Urinary tract infection, site not specified; E87.1 Hypo-osmolality and hyponatremia; I10 Essential (primary) hypertension; Z91.14 Patient's other noncompliance with medication regimen; J45.909 Unspecified asthma, uncomplicated; G47.33 Obstructive sleep apnea (adult) (pediatric); Z87.891 Personal history of nicotine dependence; E11.65 Type 2 diabetes mellitus with hyperglycemia; Z79.84 Long term (current) use of oral hypoglycemic drugs; Z68.37 Body mass index [BMI] 37.0-37.9, adult; E86.9 Volume depletion, unspecified; B96.29 Other Escherichia coli [E. coli] as the cause of diseases classified elsewhere; E05.90 Thyrotoxicosis, unspecified without thyrotoxic crisis or storm
CPT/HCPCS: 36415; 36600; 71046-TC-FY; 71260-TC; 74177-TC; 76775-TC; 76856-TC; 80053; 81003; 81015; 82248; 82436; 82533; 82550; 82570; 82607; 82803; 82962; 83036; 83605; 83735; 83935; 84100; 84133; 84300; 84439; 84443; 85025; 85651; 86038; 86140; 87040; 87070; 87086; 87186; 87207; 87389; 87430; 87491; 87591; 87899; 93005; 93010; 93306-TC; 93970-TC; 94010; 94640; 99284-25; G0378

== ENCOUNTER 2020-07-25 23:08 | Inpatient (IN) | payer BC, OTHER ==
[2020-07-26] MEDS ORDERED: VANCOMYCIN 1 GM in D5W (PRE-DOCKED) 1,000 MG/250 ML IVPB ONE (01:58)
[2020-07-26] MEDS ORDERED: PIPERACILLIN/TAZOB 3.375 GM 3.375 GM in DEXTROSE 5%-WATER - 50 ML IVPB ONE (01:58)
[2020-07-26] MEDS ORDERED: VANCOMYCIN 1,000 MG VIAL (RESTRICTED TO ID ONLY) ONE (02:03)
[2020-07-26] MEDS ORDERED: PIPERACILLIN/TAZOBACTAM 3.375 GM VIAL IVPB ONE ×3 (02:03→16:59)
[2020-07-26 02:17] LABS: BASO % 0.4 % (0-2.0); EOS % 2.3 % (0-4.5); HEMATOCRIT 46.7 % (35.4-49); HEMOGLOBIN 15.4 GM/dL (11.7-16.9); LYMPH % 31.1 % (8-40); MCH 25.9 pg (25.7-33.7); MCHC 33.1 g/dl (32.0-35.9); MEAN CELL VOLUME 78.2 fl (80-96); MEAN PLT VOLUME 10.2 fl (7.5-11.1); MONO % 7.8 % (3.8-10.2); NEUT % 58.4 % (42.8-82.8); PLATELET COUNT 237 K/MM3 (134-434); RBC 5.97 M/mm3 (4.00-5.60); RDW 15.5 % (11.9-15.9); WHITE BLOOD COUNT 9.5 K/mm3 (4.0-10.0)
[2020-07-26 02:44] LABS: ALBUMIN 3.6 g/dl (3.4-5.0); BLOOD UREA NITROGEN 13.9 mg/dL (7-18); CALCIUM 9.7 mg/dL (8.5-10.1)
[2020-07-26 02:48] LABS: CREATININE 0.9 mg/dL (0.55-1.3)
[2020-07-26 02:49] LABS: BILIRUBIN,TOTAL 0.7 mg/dL (0.2-1); TOT PROT 8.4 g/dl (6.4-8.2)
[2020-07-26 02:55] LABS: ERYTHROCYTE SEDIMENTATION RATE 54 mm/hr (0-10)
[2020-07-26] MEDS ORDERED: ACETAMINOPHEN 325 MG TABLET (FP) PO PRN (06:00)
[2020-07-26] MEDS ORDERED: LOCK ITEM NR ONE (06:04)
[2020-07-26] MEDS ORDERED: VANCOMYCIN HCL 1,500 MG in SODIUM CHLORIDE 500 ML IVPB SCH ×3 (09:00→20:00)
[2020-07-26] MEDS: LISINOPRIL 20 MG TABLET PO SCH (09:15)
[2020-07-26] MEDS: ENOXAPARIN NA (PORCINE) 40 MG/0.4 ML DISP.SYRIN SQ SCH (09:15)
[2020-07-26] MEDS: PIPERACILLIN/TAZOB 3.375 GM 3.375 GM in SODIUM CHLORIDE 50 ML IVPB SCH (09:16)
[2020-07-26] MEDS ORDERED: glyBURIDE 5 MG TABLET PO SCH (10:00)
[2020-07-26] MEDS ORDERED: PATIENT'S OWN MEDICATION (NON-FORMULARY) (Metformin Hcl [Metformin Er Osmotic] 1,000 MG Ta PO SCH (10:00)
[2020-07-26] MEDS ORDERED: NORVASC PO SCH (10:00)
[2020-07-26] MEDS ORDERED: amLODIPine BESYLATE 2.5 MG TABLET (FP) PO SCH (10:00)
[2020-07-26] MEDS ORDERED: PATIENT'S OWN MEDICATION (NON-FORMULARY) (Lisinopril [Zestril] 30 MG Tablet) PO SCH (10:00)
[2020-07-26 11:25] VITALS: BMI 36.3
[2020-07-26] MEDS: INSULIN (NOVOLOG) ASPART 100 UNITS/ML 10ML VIAL SQ SCH ×2 (11:43→22:08)
[2020-07-26] MEDS ORDERED: REFRIGERATED ANITBIOTICS ONE (15:10)
[2020-07-26] MEDS ORDERED: PT OWN MED DRAWER 7, Y5N ONE ×2 (15:10→15:21)
[2020-07-26] MEDS ORDERED: SODIUM CHLORIDE 50 ML IVPB ONE (16:59)
[2020-07-27] MEDS ORDERED: PIPERACILLIN/TAZOBACTAM 3.375 GM VIAL IVPB ONE ×3 (01:12→18:22)
[2020-07-27] MEDS ORDERED: SODIUM CHLORIDE 50 ML IVPB ONE ×3 (01:12→18:22)
[2020-07-27] MEDS: PIPERACILLIN/TAZOB 3.375 GM 3.375 GM in SODIUM CHLORIDE 50 ML IVPB SCH ×3 (01:55→18:28)
[2020-07-27] MEDS ORDERED: VANCOMYCIN HCL 1,500 MG in SODIUM CHLORIDE 500 ML IVPB SCH (02:00)
[2020-07-27] MEDS: INSULIN (NOVOLOG) ASPART 100 UNITS/ML 10ML VIAL SQ SCH ×4 (06:10→21:07)
[2020-07-27] MEDS: ENOXAPARIN NA (PORCINE) 40 MG/0.4 ML DISP.SYRIN SQ SCH (10:22)
[2020-07-27] MEDS: LISINOPRIL 20 MG TABLET PO SCH (10:22)
[2020-07-27] MEDS: amLODIPine BESYLATE 2.5 MG TABLET (FP) PO SCH (10:23)
[2020-07-27] MEDS: VANCOMYCIN/WATER BAGS 1,250 MG/250 ML BAG IVPB SCH (21:06)
[2020-07-28] MEDS: PIPERACILLIN/TAZOB 3.375 GM 3.375 GM in SODIUM CHLORIDE 50 ML IVPB SCH ×4 (02:00→17:03)
[2020-07-28] MEDS ORDERED: SODIUM CHLORIDE 50 ML IVPB ONE ×3 (03:11→16:52)
[2020-07-28] MEDS ORDERED: PIPERACILLIN/TAZOBACTAM 3.375 GM VIAL IVPB ONE ×3 (03:11→16:52)
[2020-07-28] MEDS: INSULIN (NOVOLOG) ASPART 100 UNITS/ML 10ML VIAL SQ SCH ×6 (06:35→22:21)
[2020-07-28] MEDS: PIPERACILLIN/TAZOB 3.375 GM 3.375 GM in DEXTROSE 5%-WATER - 50 ML IVPB SCH ×2 (07:44→07:45)
[2020-07-28 08:33] LABS: BASO % 0.9 % (0-2.0); EOS % 5.1 % (0-4.5); HEMATOCRIT 44.8 % (35.4-49); HEMOGLOBIN 14.8 GM/dl (11.7-16.9); LYMPH % 22.4 % (8-40); MCH 26.3 pg (25.7-33.7); MEAN CELL VOLUME 79.5 fl (80-96); MEAN PLT VOLUME 10.8 fl (7.5-11.1); MONO % 7.8 % (3.8-10.2); NEUT % 63.8 % (42.8-82.8); PLATELET COUNT 231 K/MM3 (134-434); RBC 5.64 M/mm3 (4.00-5.60); RDW 14.7 % (11.9-15.9); WHITE BLOOD COUNT 6.3 K/mm3 (4.0-10.8)
[2020-07-28 08:50] LABS: ALBUMIN 3.2 g/dl (3.4-5.0); BILIRUBIN,TOTAL 0.8 mg/dl (0.2-1); CALCIUM 8.9 mg/dl (8.5-10); CREATININE 0.8 mg/dl (0.55-1.3); POTASSIUM 4.1 mmol/L (3.5-5.1); TOT PROT 7.3 g/dl (6.4-8.2)
[2020-07-28] MEDS: ENOXAPARIN NA (PORCINE) 40 MG/0.4 ML DISP.SYRIN SQ SCH (10:21)
[2020-07-28] MEDS: amLODIPine BESYLATE 2.5 MG TABLET (FP) PO SCH (10:26)
[2020-07-28] MEDS: LISINOPRIL 20 MG TABLET PO SCH (10:26)
[2020-07-28] MEDS: VANCOMYCIN/WATER BAGS 1,250 MG/250 ML BAG IVPB SCH (20:24)
[2020-07-29] MEDS ORDERED: SODIUM CHLORIDE 50 ML IVPB ONE ×3 (01:00→16:42)
[2020-07-29] MEDS ORDERED: PIPERACILLIN/TAZOBACTAM 3.375 GM VIAL IVPB ONE ×3 (01:00→16:42)
[2020-07-29] MEDS: PIPERACILLIN/TAZOB 3.375 GM 3.375 GM in SODIUM CHLORIDE 50 ML IVPB SCH ×3 (01:34→17:11)
[2020-07-29] MEDS: INSULIN (NOVOLOG) ASPART 100 UNITS/ML 10ML VIAL SQ SCH ×4 (07:07→22:17)
[2020-07-29] MEDS: amLODIPine BESYLATE 2.5 MG TABLET (FP) PO SCH (09:00)
[2020-07-29] MEDS: LISINOPRIL 20 MG TABLET PO SCH (09:00)
[2020-07-29] MEDS: ENOXAPARIN NA (PORCINE) 40 MG/0.4 ML DISP.SYRIN SQ SCH (09:01)
[2020-07-29 09:52] LABS: CALCIUM 8.9 mg/dl (8.5-10); CREATININE 0.8 mg/dl (0.55-1.3); POTASSIUM 4.3 mmol/L (3.5-5.1)
[2020-07-29] MEDS: VANCOMYCIN/WATER BAGS 1,250 MG/250 ML BAG IVPB SCH (20:01)
[2020-07-30] MEDS ORDERED: PIPERACILLIN/TAZOBACTAM 3.375 GM VIAL IVPB ONE ×3 (01:54→15:06)
[2020-07-30] MEDS ORDERED: SODIUM CHLORIDE 50 ML IVPB ONE ×3 (01:54→15:06)
[2020-07-30] MEDS: PIPERACILLIN/TAZOB 3.375 GM 3.375 GM in SODIUM CHLORIDE 50 ML IVPB SCH ×2 (02:01→09:27)
[2020-07-30] MEDS: INSULIN (NOVOLOG) ASPART 100 UNITS/ML 10ML VIAL SQ SCH ×2 (06:20→11:00)
[2020-07-30] MEDS: ENOXAPARIN NA (PORCINE) 40 MG/0.4 ML DISP.SYRIN SQ SCH (09:27)
[2020-07-30] MEDS: amLODIPine BESYLATE 2.5 MG TABLET (FP) PO SCH (09:28)
[2020-07-30] MEDS: LISINOPRIL 20 MG TABLET PO SCH (09:28)
[2020-07-30] MEDS ORDERED: CEFTRIAXONE 1 GM in DEXTROSE 5%-WATER - 50 ML IVPB SCH (14:15)
[2020-07-30 14:59] VITALS: BP 157/85; PULSE 86; TEMP 98.8
== END 2020-07-30 14:30 | disposition home or self-care (01) | DRG 638 ==
LOC: FER 23:08 → FM/S 07-26 09:45
PROVIDERS: ADMIT Internal Medicine; ATTEND Nurse Practitioner Acute Care
PROC: 02HV33Z Insertion of Infusion Device into Superior Vena Cava, Percutaneous Approach (ICD-10-PCS; principal; 2020-07-30)
PROC: B518ZZA Fluoroscopy of Superior Vena Cava, Guidance (ICD-10-PCS; 2020-07-30)
DX: E11.69 Type 2 diabetes mellitus with other specified complication (principal); M86.8X7 Other osteomyelitis, ankle and foot; I10 Essential (primary) hypertension; E11.9 Type 2 diabetes mellitus without complications; J45.909 Unspecified asthma, uncomplicated; L03.031 Cellulitis of right toe
CPT/HCPCS: 36415; 36569; 73630-TC-RT-FY; 73718-TC-RT; 80048; 80053; 82962; 83735; 85025; 85651; 86140; 87040; 93005; 99285-25; C9803; U0003